=== PATIENT | male | born 1975 | race Hispanic/Latino ===

== ENCOUNTER 2019-01-30 08:40 | Emergency (ER) | payer BC ==
[2019-01-30] MEDS ORDERED: ONDANSETRON 4 MG/2 ML VIAL ONE (09:26)
[2019-01-30] MEDS ORDERED: MEPERIDINE HCL 25 MG/0.5 ML ONE (09:26)
[2019-01-30 09:32] LABS: Absolute Monocytes 0.8 K/uL (0.1-1.3); Basophils % 0.4 % (0-1.3); Eosinophils % 2.6 % (0-4.4); Hematocrit 40.5 % (39.6-49.0); MPV 8.8 fL (7.6-11.3); Monocytes % 7.4 % (3.3-12.3); RBC Red Blood Cell Count 4.59 M/uL (4.33-5.43)
[2019-01-30 09:44] LABS: ALT/SGPT 57 U/L (12-78); AST/SGOT 36 U/L (15-37); Alkaline Phosphatase 84 U/L (45-117); BUN Blood Urea Nitrogen 12 mg/dL (7-18); Bicarbonate 28 mmol/L (21-32); Bilirubin Direct < 0.1 mg/dL (0-0.2); Bilirubin Total 0.3 mg/dL (0.2-1.0); Glucose Level 105 mg/dL (74-106); Lipase 142 U/L (73-393); Potassium 4.1 mmol/L (3.5-5.1); Protein, Total 7.9 g/dL (6.4-8.2); Sodium Level 140 mmol/L (136-145)
--- NOTE | 2019-01-30 09:52 | RAD REPORT ---
EXAM DESCRIPTION: US - Abdomen Exam Limited - 01/30/2019 9:47 am COMPARISON: None. FINDINGS: No gallstones, sludge or other abnormalities within the gallbladder lumen. There is no wal l thickening or pericholecystic fluid. No common duct stone or biliary tree dilatation identified. Partially imaged liver shows evidence for fatty infiltration. IMPRESSION: Normal gallbladder and biliary tree ultrasound. Fatty infiltration is present in a partially imaged liver.
[2019-01-30 10:26] LABS: Urine Blood TRACE (NEG); Urine Glucose NEGATIVE (NEG); Urine Protein NEGATIVE (NEG); Urine Specific Gravity 1.025 (1.005-1.030)
--- NOTE | 2019-01-30 11:42 | RAD REPORT ---
EXAM DESCRIPTION: CT - Abdomen Pelvis W Contrast - 01/30/2019 11:09 am CLINICAL HISTORY: Back pain, abdominal pain COMPARISON: None. TECHNIQUE: Biphasic, helical CT imaging of the abdomen and pelvis was performed following 100 ml non -ionic IV contrast. No oral contrast administered. All CT scans are performed using dose optimization technique as appropriate and may include automated exposure control or mA/KV adjustment according to patient size. FINDINGS: No suspicious findings in the lung bases. Liver shows a very pronounced fatty infiltration pattern with no suspicious liver lesion. Spleen and pancreas show no suspicious findings. Gallbladder and biliary tree are also without suspicious findin g. Symmetric renal function is seen with no hydronephrosis or suspicious renal mass. No pyelonephritis o r acute parenchymal process. No bladder abnormalities. No adrenal abnormalities. No dilated bowel loops or bowel wall thickening. No free air, free fluid or inflammatory stranding. No mass or bulky lymphadenopathy. A small fat only umbilical hernia is present. No suspicious bony findings. IMPRESSION: Contrast enhanced CT abdomen and pelvis showing no acute finding. Diffuse fatty infiltration of a prominent sized liver.
--- NOTE | 2019-01-30 11:56 | EDPHYS ---
Physician Documentation [facility] Name: María Kramer Age: 43 yrs Sex: Male : 1975 Arrival Date: 01/30/2019 Time: 08:44 Bed 8 Private MD: ED Physician Fernando Guerra HPI: 01/30 09:04 This 43 yrs old Male presents to ER via Ambulatory with complaints of jr8 Abdominal pain/Back pain. 09:04 The patient presents with abdominal pain in the right upper quadrant. Onset: The jr8 symptoms/episode began/occurred acutely, today. The symptoms radiate to right back. Associated signs and symptoms: Pertinent positives: nausea. The symptoms are described as stabbing. Modifying factors: The symptoms are alleviated by nothing, the symptoms are aggravated by nothing. Severity of pain: At its worst the pain was moderate. The patient has not experienced similar symptoms in the past. The patient has not recently seen a physician. Historical: - Allergies: 09:00 No Known Allergies; iw - PMHx: 09:00 Hypothyroidism; iw - PSHx: 09:00 None; iw - Immunization history:: Adult Immunizations up to date. - Social history:: Smoking status: Patient uses tobacco products, smokes one pack cigarettes per day. - Ebola Screening: : Patient negative for fever greater than or equal to 101.5 degrees Fahrenheit, and additional compatible Ebola Virus Disease symptoms Patient denies exposure to infectious person Patient denies travel to an Ebola-affected area in the 21 days before illness onset No symptoms or risks identified at this time. ROS: 09:04 Eyes: Negative for injury, pain, redness, and discharge, ENT: Negative for injury, jr8 pain, and discharge, Neck: Negative for injury, pain, and swelling, Cardiovascular: Negative for chest pain, palpitations, and edema, Respiratory: Negative for shortness of breath, cough, wheezing, and pleuritic chest pain, Back: Negative for injury and pain, MS/Extremity: Negative for injury and deformity, Skin: Negative for injury, rash, and discoloration, Neuro: Negative for headache, weakness, numbness, tingling, and seizure. 09:04 Abdomen/GI: Positive for abdominal pain, nausea, Negative for vomiting, diarrhea, constipation, abdominal cramps, abdominal distension. Exam: 09:04 Eyes: Pupils equal round and reactive to light, extra-ocular motions intact. Lids and jr8 lashes normal. Conjunctiva and sclera are non-icteric and not injected. Cornea within normal limits. Periorbital areas with no swelling, redness, or edema. ENT: Nares patent. No nasal discharge, no septal abnormalities noted. Tympanic membranes are normal and external auditory canals are clear. Oropharynx with no redness, swelling, or masses, exudates, or evidence of obstruction, uvula midline. Mucous membranes moist. Neck: Trachea midline, no thyromegaly or masses palpated, and no cervical lymphadenopathy. Supple, full range of motion without nuchal rigidity, or vertebral point tenderness. No Meningismus. Cardiovascular: Regular rate and rhythm with a normal S1 and S2. No gallops, murmurs, or rubs. Normal PMI, no JVD. No pulse deficits. Respiratory: Lungs have equal breath sounds bilaterally, clear to auscultation and percussion. No rales, rhonchi or wheezes noted. No increased work of breathing, no retractions or nasal flaring. Back: No spinal tenderness. No costovertebral tenderness. Full range of motion. Skin: Warm, dry with normal turgor. Normal color with no rashes, no lesions, and no evidence of cellulitis. MS/ Extremity: Pulses equal, no cyanosis. Neurovascular intact. Full, normal range of motion. Neuro: Awake and alert, GCS 15, oriented to person, place, time, and situation. Cranial nerves II-XII grossly intact. Motor strength 5/5 in all extremities. Sensory grossly intact. Cerebellar exam normal. Normal gait. 09:04 Abdomen/GI: Inspection: obese Bowel sounds: active, all quadrants, Palpation: soft, in all quadrants, moderate abdominal tenderness, in the right upper quadrant, mass, is not appreciated, rebound tenderness, is not appreciated, voluntary guarding, is not appreciated, involuntary guarding, is not appreciated, no appreciated organomegaly, Indicators: McBurney's point is not tender, Zamora's sign is positive, Rovsing's sign is negative, Liver: tenderness, is not appreciated. Vital Signs: 09:00 BP 135 / 88; Pulse 76; Resp 18 S; Temp 97.8; Pulse Ox 98% on R/A; Weight 120.2 kg; iw Height 5 ft. 7 in. (170.18 cm); Pain 10/10; 10:08 BP 113 / 79; Pulse 66; Resp 16 S; Pulse Ox 99% on R/A; Pain 5/10; aa5 09:00 Body Mass Index 41.50 (120.20 kg, 170.18 cm) iw MDM: 08:57 Patient medically screened. jr8 11:53 Differential diagnosis: bowel obstruction, cholecystitis, Cholelithiasis, jr8 diverticulitis, gastritis, gastroesophageal reflux disease, Hepatitis, non-specific abd pain, pancreatitis, Peptic Ulcer Disease, Perf. Duodenal Ulcer, Perf. Gastric Ulcer, Ureterolithiasis, urinary tract infection, acalculous cholecystitis. Data reviewed: vital signs, nurses notes, lab test result(s), radiologic studies, CT scan, ultrasound. Data interpreted: Pulse oximetry: on room air is 99 %. Interpretation: normal. Counseling: I had a detailed discussion with the patient and/or guardian regarding: the historical points, exam findings, and any diagnostic results supporting the discharge/admit diagnosis, lab results, radiology results, the need for outpatient follow up, a engineering surveyor, to return to the emergency department if symptoms worsen or persist or if there are any questions or concerns that arise at home. Response to treatment: the patient's symptoms have markedly improved after treatment. 01/30 09:02 Order name: Basic Metabolic Panel; Complete Time: :01/30 09:02 Order name: CBC with Diff; Complete Time: :01/30 09:02 Order name: Creatinine for Radiology; Complete Time: :01/30 09:02 Order name: Hepatic Function; Complete Time: :46 01/30 09:02 Order name: Lipase; Complete Time: :46 01/30 09:34 Order name: Urine Dipstick--Ancillary (enter results); Complete Time: 10:29 eb 01/30 09:02 Order name: IV Saline Lock; Complete Time: 09:01/30 09:02 Order name: Labs collected and sent; Complete Time: 09:01/30 09:02 Order name: US Abdomen Limited; Complete Time: 10:15 01/30 09:25 Order name: Urine Dipstick-Ancillary (obtain specimen); Complete Time: 09:25 aa5 01/30 10:16 Order name: CT Abd/Pelvis - W/Contrast; Complete Time: 11:52 jr8 Administered Medications: 09:15 Drug: Demerol 25 mg Route: IVP; Site: left antecubital; 5 09:20 Follow up: Response: No adverse reaction 5 09:15 Drug: Zofran 4 mg Route: IVP; Site: left antecubital; aa5 09:20 Follow up: Response: No adverse reaction [facility] Disposition: 01/30/19 11:54 Discharged to Home. Impression: Right upper quadrant abdominal tenderness. - Condition is Stable. - Discharge Instructions: Abdominal Pain, Adult. - Prescriptions for Zofran 4 mg Oral Tablet - take 1 tablet by ORAL route every 12 hours As needed; 20 tablet. Tramadol 50 mg Oral Tablet - take 1 tablet by ORAL route every 8 hours as needed; 12 tablet. - Medication Reconciliation Form, Thank You Letter, Antibiotic Education, Prescription Opioid Use, Work release form, Family Work Release form. - Follow up: Renato Bauman MD; When: 5 - 6 days; Reason: Recheck today's complaints, Continuance of care, Re-evaluation by your physician. - Problem is new. - Symptoms have improved. Addendum: 02/01/2019 08:01 Co-signature as Attending Physician, Fernando Guerra MD I agree with the assessment and k dr plan of care. Signatures: Dispatcher [employer] EDMN Fernando Guerra MD MD [facility] Kamini Chapman RN RN Mariana Sullivan RN RN aa5 Iglesia Barron PA PA jr8 Néstor Simental RN RN hj Corrections: (The following items were deleted from the chart) 01/30 12:40 11:54 01/30/2019 11:54 Discharged to Home. Impression: Right upper quadrant abdominal hj tenderness. Condition is Stable. Forms are Medication Reconciliation Form, Thank You Letter, Antibiotic Education, Prescription Opioid Use. Follow up: Renato Bauman; When: 5 - 6 days; Reason: Recheck today's complaints, Continuance of care, Re-evaluation by your physician. Problem is new. Symptoms have improved. jr8
--- NOTE | 2019-01-30 11:56 | ER ---
Nurse's Notes [facility] Name: María Kramer Age: 43 yrs Sex: Male : 1975 Arrival Date: 01/30/2019 Time: 08:44 Bed 8 Private MD: Diagnosis: Right upper quadrant abdominal tenderness Presentation: 01/30 08:57 Presenting complaint: Patient states: right mid back pain radiating to RUQ/right breast iw area, tender on palpation, denies injury, denies n/v, pain 10/10, states pain makes him SOB. Transition of care: patient was not received from another setting of care. Onset of symptoms was January 28, 2019. Risk Assessment: Do you want to hurt yourself or someone else? Patient reports no desire to harm self or others. Initial Sepsis Screen: Does the patient meet any 2 criteria? No. Patient's initial sepsis screen is negative. Does the patient have a suspected source of infection? No. Patient's initial sepsis screen is negative. Care prior to arrival: None. 08:57 Method Of Arrival: Ambulatory 08:57 Acuity: KAYLAH 3 iw Historical: - Allergies: 09:00 No Known Allergies; iw - PMHx: 09:00 Hypothyroidism; iw - PSHx: 09:00 None; iw - Immunization history:: Adult Immunizations up to date. - Social history:: Smoking status: Patient uses tobacco products, smokes one pack cigarettes per day. - Ebola Screening: : Patient negative for fever greater than or equal to 101.5 degrees Fahrenheit, and additional compatible Ebola Virus Disease symptoms Patient denies exposure to infectious person Patient denies travel to an Ebola-affected area in the 21 days before illness onset No symptoms or risks identified at this time. Screenin:05 Abuse screen: Denies threats or abuse. Nutritional screening: No deficits noted. aa5 Tuberculosis screening: No symptoms or risk factors identified. Fall Risk None identified. Assessment: 09:05 General: Appears comfortable, Behavior is calm, cooperative. Pain: Complains of pain in aa5 right upper quadrant Pain radiates to right mid back Pain currently is 10 out of 10 on a pain scale. Quality of pain is described as sharp, shooting, Pain began last night Is continuous. Neuro: Level of Consciousness is awake, alert, obeys commands, Oriented to person, place, time, situation. Cardiovascular: Heart tones S1 S2 present Rhythm is regular. Respiratory: Airway is patent Respiratory effort is even, unlabored, Respiratory pattern is regular, symmetrical. GI: Abdomen is round Bowel sounds present X 4 quads. Abdomen is tender to palpation in right upper quadrant Patient currently denies diarrhea, nausea, vomiting. : No signs and/or symptoms were reported regarding the genitourinary system. EENT: No signs and/or symptoms were reported regarding the EENT system. Derm: Skin is pink, warm \T\ dry. Musculoskeletal: Range of motion: intact in all extremities. 10:00 Reassessment: Pt resting in bed with eyes closed, respirations even and unlabored, skin aa5 is normal/warm/dry. Pt easy to awaken to verbal stimuli. States feeling better, rates pain 5/10 on a pain scale. . 10:45 Reassessment: Patient is alert, oriented x 3, equal unlabored respirations, skin aa5 warm/dry/pink. Pt sitting up in bed. Awaiting CT scan . 10:45 Pain: Pain currently is 5 out of 10 on a pain scale. aa5 Vital Signs: 09:00 BP 135 / 88; Pulse 76; Resp 18 S; Temp 97.8; Pulse Ox 98% on R/A; Weight 120.2 kg; iw Height 5 ft. 7 in. (170.18 cm); Pain 10/10; 10:08 BP 113 / 79; Pulse 66; Resp 16 S; Pulse Ox 99% on R/A; Pain 5/10; aa5 09:00 Body Mass Index 41.50 (120.20 kg, 170.18 cm) ED Course: 08:44 Patient arrived in ED. rg4 08:57 Mariana Sullivan, RN is Primary Nurse. aa5 08:57 Mariana Sullivan, RN is Primary Nurse. aa5 08:57 Iglesia aBrron PA is PHCP. jr8 08:57 Fernando Guerra MD is Attending Physician. jr8 08:59 Triage completed. iw 09:00 Arm band placed on. iw 09:02 Missed attempt(s): 22 gauge in right antecubital area. jb1 09:05 Patient has correct armband on for positive identification. Placed in gown. Bed in low aa5 position. Call light in reach. Side rails up X2. 09:05 Initial lab(s) drawn, by me, sent to lab. Inserted saline lock: 20 gauge in left aa5 antecubital area, using aseptic technique. Blood collected. 09:47 Ultrasound completed. Patient tolerated well. sg3 09:47 US Abdomen Limited In Process Unspecified. EDMS 10:03 No provider procedures requiring assistance completed. aa5 11:08 CT completed. Patient tolerated procedure well. Patient moved back from CT. az 11:09 CT Abd/Pelvis - W/Contrast In Process Unspecified. EDMS 11:54 Renato Bauman MD is Referral Physician. jr8 12:40 IV discontinued, intact, bleeding controlled, No redness/swelling at site. Pressure hj dressing applied. Administered Medications: 09:15 Drug: Demerol 25 mg Route: IVP; Site: left antecubital; aa5 09:20 Follow up: Response: No adverse reaction aa5 09:15 Drug: Zofran 4 mg Route: IVP; Site: left antecubital; aa5 09:20 Follow up: Response: No adverse reaction aa5 Outcome: 11:54 Discharge ordered by . jr8 12:39 Discharged to home ambulatory, with family. hj 12:39 Condition: stable 12:39 Discharge instructions given to patient, family, Instructed on discharge instructions, follow up and referral plans. medication usage, Demonstrated understanding of instructions, follow-up care, medications, Prescriptions given X 2. 12:40 Patient left the ED. Signatures: Dispatcher [employer] EDGA Allen Gandhi jb1 Greg Longo LVN LVN em Williams, Irene, RN RN iw Calderon, Audri, RN RN aa5 Iglesia Barron PA PA jr8 Néstor Simental RN RN hj Garcia, Rubi rg4 Godinez, Sarah sg3 June Dow mt Corrections: (The following items were deleted from the chart) 08:57 08:53 Greg Longo LVN is Primary Nurse. jarrett aguayo 08:57 08:57 Primary Nurse role handed off by Greg Longo LVN aa5 aa5
== END 2019-01-30 12:40 | disposition home or self-care (01) ==
LOC: ER 08:40
DX: R10.811 Right upper quadrant abdominal tenderness (principal); F17.210 Nicotine dependence, cigarettes, uncomplicated
CPT/HCPCS: 36415; 74177; 76705; 80048; 80076; 81003; 83690; 85025; 96374; 96375; 99284; J2175; J2405; Q9967

== ENCOUNTER 2022-10-02 21:25 | Emergency (ER) | payer BC ==
--- OUTSIDE RECORDS SUMMARY | 2022-10-02 21:27 | XMS REPORT | Continuity of Care Document ---
:1975 Author Organization [facility] t Address [address] [place] [address] Care Team Providers Name Role Phone EDNA ROMERO Primary Care Physician Unavailable EDNA ROMERO Attending Clinician Unavailable LAKESHA MONTGOMERY Attending Clinician Unavailable Lakesha Montgomery MD Attending Clinician GLADYS MARSHALL Attending Clinician Unavailable King MONA MD, James C Attending Clinician TIMI BURTON III Attending Clinician Unavailable Payers Payer Name Policy Type Policy Number Effective Date Expiration Date S deidra [facility] [id number] 2022 00:00:00 COMMERCIAL [id number] 2021 NON-CONTRACT 00:00:00 GENERIC Problems Condition Condition Condition Status Onset Resolution Last Treating Co mments Source Name Details Category Date Date Treatment Clinician Date History of History of Disease Active 2018-09 U denis Graves' Graves' 0-14 ity of disease disease 00:00: [address] Branch Prediabete Prediabete Disease Active U denis s s 6-26 ity of 00:00: [place] [id number] Medical Branch Hyperlipid Hyperlipid Disease Active U denis emia, emia, 1-10 ity of unspecifie [place] Medical hyperlipid hyperlipid Br anch emia type emia type Gastroesop Gastroesop Disease Active 2015-09 U denis hageal hageal 0-07 ity of reflux reflux 00:00: [place] disease disease 00 Medical without without Branch esophagiti esophagiti s s Hypothyroi Hypothyroi Disease Active 2015-09 U nivers dism, dism, 0-07 ity of [place]specifie [place] type 00 [facility] Allergies, Adverse Reactions, Alerts Allergy Allergy Status Severity Reaction(s) Onset Inactive Treating Comm ents Source Name Type Date Date Clinician Iodine Propensi Active Anaphylaxis Uni vers ty to 02-21 ity of adverse 00:00: [place] reaction 00 Medical s Branch IODINE DRUG Active Anaphylaxis Unive rs INGREDI 02-21 ity of 00:00: [place] 00 [facility] Social History Social Habit Start Date Stop Date Quantity Comments Source History of tobacco Cigarette Smoker University use [facility] Alcohol intake 2019-06-20 2019-06-20 0 /d University of 00:00:00 00:00:00 [facility] Cigarettes smoked 2018-03-15 2018-03-15 [facility] ity of current (pack per 00:00:00 00:00:00 [facility] ) - Reported Branch Cigarette 2018-03-15 2018-03-15 University of pack-years 00:00:00 00:00:00 [facility] Tobacco use and 2018-03-15 2018-03-15 Smokeless Universit y of exposure 00:00:00 00:00:00 tobacco non-user [facility] Sex Ass[birth year] At [birth year] Universit y of 00:00:00 00:00:00 [facility] Smoking Status Start Date Stop Date Source Smokes tobacco daily 2018-03-15 00:00:00 Univers ity of [facility] Medications Ordered Filled Start Stop Current Ordering Indication Dosage Frequency Signature Comments Components Source Medication Medication Date Date Medication? Clinician (SIG) Name Name traMADoL 2020-09 Yes Take by Univer s 100 mg Tab 2-20 mouth. ity of 10:47: [address] traMADoL 2020-09 Yes Take by Univer s 100 mg Tab 2-20 mouth. ity of 10:47: [address] fluticasone 2018-09 Yes [id number] 1{spray Use 1 Univers propionate 0-14 } [place] in ity o f 50 00:00: each [place] mcg/actuati 00 nostril 2 Med ical on nasal (two) Branch spray times daily. fluticasone 2018-09 Yes [id number] 1{spray Use 1 Univers propionate 0-14 } [place] in ity o f 50 00:00: each [place] mcg/actuati 00 nostril 2 Med ical on nasal (two) Branch spray times daily. levothyroxi 2017-09 Yes [id number] 25ug Take 1 Univers ne 25 mcg 0-26 tablet by ity o f tablet 00:00: mouth [place] 00 every Medical morning. Branch levothyroxi 2017-09 Yes [id number] 200ug Take 1 Univers ne 0-26 tablet by ity of (SYNTHROID) 00:00: mouth [place] 200 mcg 00 every Medical tablet morning. Branch omeprazole 2017-09 Yes [id number] 20mg Take 1 Univers 20 mg 0-26 capsule by ity of capsule 00:00: mouth [place] 00 daily. Medical Branch levothyroxi 2017-09 Yes [id number] 25ug Take 1 Univers ne 25 mcg 0-26 tablet by ity o f tablet 00:00: mouth [place] 00 every Medical morning. Branch levothyroxi 2017-09 Yes [id number] 200ug Take 1 Univers ne 0-26 tablet by ity of (SYNTHROID) 00:00: mouth [place] 200 mcg 00 every Medical tablet morning. Branch omeprazole 2017-09 Yes [id number] 20mg Take 1 Univers 20 mg 0-26 capsule by ity of capsule 00:00: mouth [place] 00 daily. Medical Branch albuterol 2016-09 Yes 2.5mg Inhale 3 Uni vers 2.5 mg /3 2-09 mL every 4 ity of mL (0.083 00:00: (four) [place] %) 00 hours as Medical nebulizer needed for Bran ch solution Wheezing or Shortness of Breath. albuterol 2016-09 Yes 2.5mg Inhale 3 Uni vers 2.5 mg /3 2-09 mL every 4 ity of mL (0.083 00:00: (four) [place] %) 00 hours as Medical nebulizer needed for Bran ch solution Wheezing or Shortness of Breath. Immunizations Ordered Filled Immunization Date Status Comments [facility] e Immunization Name Name SARS-COV-2 COVID-19 2020-12-03 Completed Unive rsity of MODERNA VACCINE 00:00:00 [place] Med ical Branch SARS-COV-2 COVID-19 2020-12-03 Completed Unive rsity of MODERNA VACCINE 00:00:00 [facility] SARS-COV-2 COVID-19 2020-11-05 Completed Unive rsity of MODERNA VACCINE 00:00:00 [facility] SARS-COV-2 COVID-19 2020-11-05 Completed Unive rsity of MODERNA VACCINE 00:00:00 [facility] Branch Influenza Virus 2019-06-20 Completed Universit y of Vaccine Quad .5 mL 00:00:00 [facility] IM 6+ MO Branch Influenza Virus 2019-06-20 Completed Universit y of Vaccine Quad .5 mL 00:00:00 [facility] IM 6+ MO Branch Influenza Virus 2016-09-16 Completed Universit y of Vaccine Quad ID 00:00:00 [facility] 18-64 YRS Branch Influenza Virus 2016-09-16 Completed Universit y of Vaccine Quad ID 00:00:00 [facility] 18-64 YRS Branch Vital Signs Vital Name Observation Time Observation Value Comments Source Systolic blood 2019-06-20 13:54:00 102 mm[Hg] Univer sity of pressure [facility] Diastolic blood 2019-06-20 13:54:00 61 mm[Hg] Unive rsity of pressure [facility] Heart rate 2019-06-20 13:54:00 81 /min [facility] Body temperature 2019-06-20 13:54:00 36.5 [facility] Respiratory rate 2019-06-20 13:54:00 18 /min [facility] Body height 2019-06-20 13:54:00 171.5 cm [facility] Body weight 2019-06-20 13:54:00 119.75 kg [facility] BMI 2019-06-20 13:54:00 40.74 kg/m2 [facility] Oxygen saturation in 2019-06-20 13:54:00 98 /min [facility] Arterial blood by [facility] Pulse oximetry Branch Procedures Procedure Date / Time Performed Performing Clinician Sourc e FLU VACC ([id number]), 2019-06-20 14:18:31 Timi Burton [facility] [place] 6+ MONTHS, IM, QUAD Medical Bran ch Encounters Start End Encounter Admission Attending Care Care Encounter Source Date/Time Date/Time Type Type Clinicians Facility Department ID 2022-09-30 2022-09-30 Outpatient R [facility] [id number] Univers 12:30:00 12:30:00 EDNA madai [facility] 2022-03-18 2022-03-18 Outpatient R [facility] [id number] Univers 08:30:00 [facility]30[facility] 2022-03-17 2022-03-17 [facility] [id number] Univers 00:00:00 00:00:00 [facility] [id number] it y of [facility] [id number] [place] as JOHN?BLEA [phone] Ma donovan [address] [place] MEDICAL OFF[facility] 2020-12-03 2020-12-03 Outpatient R [facility] [id number] Univers 08:10:00 08:10:00 [facility] 2020-11-05 2020-11-05 [facility] [id number] Univers 10:30:00 10:30:00 [facility] 2020-11-04 2020-11-04 [facility] [id number] Univers 14:55:00 14:55:00 [facility] 2019-06-20 2019-06-20 Office Timi Burton [facility] [id number] Univers 08:40:00 09:38:13 Visit C LIKELY [id number] i ty of [place] [id number] [place] [id number] Ma donovan [address] Branch BUILDING 2019-06-20 2019-06-20 Outpatient R [facility] [id number] Univers 08:40:00 09:38:13 TIMI [facility] Results This patient has no known results.
[2022-10-02 22:15] LABS: Absolute Lymphocytes (CBC) 3.7 K/uL (0.7-4.9); Hematocrit 39.7 % (39.6-49.0); Lymphocytes % 36.7 % (15.3-44.8); MCV 88.7 fL (80-100); MPV 8.1 fL (7.6-11.3); RBC Red Blood Cell Count 4.48 M/uL (4.33-5.43)
[2022-10-02 22:26] LABS: C-Reactive Protein 7.85 mg/L (<3.00); Potassium 3.4 mmol/L (3.5-5.1)
--- NOTE | 2022-10-02 22:38 | RAD REPORT ---
EXAM DESCRIPTION: RAD - Foot Left 3 View - 10/02/2022 10:28 pm CLINICAL HISTORY: Left Foot pain FINDINGS: No fracture or dislocation is seen. Soft tissue swelling is present. No bone or joint abnormality noted
--- NOTE | 2022-10-02 23:18 | EDPHYS ---
Physician Documentation [facility] Name: María Kramer Age: 46 yrs Sex: Male : 1975 Arrival Date: 10/02/2022 Time: 21:30 Bed 12 Private MD: ED Physician Liu Bingham HPI: 10/02 21:56 This 46 yrs old Male presents to ER via Ambulatory with complaints of Feet bs3 Swelling. 21:56 46-year-old male history of hypothyroidism, obesity, current smoker presents with bs3 several weeks of left fourth and fifth toe redness and ulceration the patient notes that his feet were in a moist shoe when he was working and then developed some ulcerations on his feet he continued to work and continues to work since this happened and his swelling and redness has not gotten any better they tried putting bacitracin and hydrogen peroxide on his feet without relief he denies any fevers but felt like he had chills earlier today he notes a chronic cough on review of systems no chest pain shortness of breath nausea vomiting or anything else bothering him. Denies hx of dm. Historical: - Allergies: 21:40 No Known Allergies; vc1 - Home Meds: 21:40 Synthroid 200 mcg Oral tab 1 tab once daily [Active]; vc1 - PMHx: 21:40 Hypothyroidism; vc1 - PSHx: 21:40 None; vc1 - Immunization history:: Client reports receiving the 2nd dose of the Covid vaccine. - Social history:: Smoking status: Patient reports the use of cigarette tobacco products, 7-8. ROS: 21:56 Constitutional: Negative for fever, chills Eyes: Negative for injury, pain, redness, bs3 and discharge. 21:56 All other systems are negative. 21:56 Unable to obtain ROS due to 21:56 Unable to obtain ROS due to cannot unclick unable to obtrain. Exam: 21:56 Constitutional: This is a well developed, well nourished patient who is awake, alert, bs3 and in no acute distress. Head/Face: Normocephalic, atraumatic. ENT: mmm, no posterior phyarngeal erythema Cardiovascular: Regular rate and rhythm with a normal S1 and S2. symmetric pulses in upper extremities Respiratory: Lungs have equal breath sounds bilaterally, clear to auscultation, no respiratory distress Abdomen/GI: Soft, non-tender, no rebound or guarding MS/ Extremity: left fourth/fifth digit with skin breakdown, there is some erythema, no purulent drainage Neuro: Awake and alert, GCS 15, oriented to person, place, time, and situation. Cranial nerves II-XII grossly intact. Motor strength 5/5 in all extremities. Sensory grossly intact. Psych: Awake, alert, with orientation to person, place and time. Behavior, mood, and affect are within normal limits. Vital Signs: 21:37 Weight 111.13 kg; Height 5 ft. 7 in. (170.18 cm); Pain 10/10; vc1 21:43 BP 120 / 47; Pulse 76; Resp 18; Temp 98.1; Pulse Ox 100% ; vc1 22:59 BP 119 / 65; Pulse 62; Resp 16; Pulse Ox 100% on R/A; kd3 21:37 Body Mass Index 38.37 (111.13 kg, 170.18 cm) vc1 MDM: 21:47 Patient medically screened. bs3 21:56 Differential diagnosis: cellulitis, osteomyelitis, pressure ulcer, skin breakdown 2/2 bs3 hydrogen peroxide. 21:56 Care significantly affected by the following Social Determinants of Health: Poor access bs3 to healthcare and/or lack of insurance. ED course: will eval for osteo, possible infection, will cover with antibiotics, will rec betadine soaks, keep dry and without socks for 1 week and f/u with surgery for possible debridement, pt counceled at length that he needs to stop smoking for healing to occur. Very strict return prec given. . 23:16 Data reviewed: vital signs, nurses notes, radiologic studies, plain films. bs3 Consideration of Admission/Observation. Independent interpretation of the following test(s) in the Emergency Department X-Ray: My interpretation is no bony erosion. ED course: labs notable for elevated crp, otherwise wnl, pt advised to f/u with surgery for wound care, will cover with antibiotics, advised betadine soaks. 10/02 21:55 Order name: CBC with Diff; Complete Time: 23:15 bs3 10/02 21:55 Order name: BMP; Complete Time: 23:15 bs3 10/02 21:55 Order name: CRP; Complete Time: 23:15 bs3 10/02 22:30 Order name: Foot Left 3 View; Complete Time: 23:15 EDMS Administered Medications: 22:15 Drug: Betadine Solution 10 % 3 application Route: Topical; Site: wound; kd3 Disposition Summary: 10/02/22 23:18 Discharge Ordered Location: Home bs3 Problem: new bs3 Symptoms: are unchanged bs3 Condition: Fair bs3 Diagnosis - Foot Laceration/ Open wound of foot bs3 Followup: bs3 - With: Raul Alvarez MD - When: 5 - 6 days - Reason: Recheck today's complaints Discharge Instructions: - Discharge Summary Sheet bs3 - Wound Care, Adult bs3 Forms: - Work release form bs3 - Medication Reconciliation Form bs3 - Thank You Letter bs3 - Antibiotic Education bs3 - Prescription Opioid Use bs3 Prescriptions: - BETADINE 10% - apply 10 drop by TOPICAL route [address] 10 drops of betadine in bs3 warm water and soak foot in solution for 20min 2x daily. Then dry foot and keep clean and dry; 1 bottle; Refills: 0, Product Selection Permitted - Clindamycin HCl 300 mg Oral Capsule - take 1 capsule by ORAL route every 6 hours for 10 days; 40 capsule; Refills: 0, bs3 Product Selection Permitted Signatures: Dispatcher [employer] Michelle Gomez RN RN kd3 Carli Alexander RN RN vc1 Liu Bingham MD MD bs3 Corrections: (The following items were deleted from the chart) 22:30 21:56 Foot Right 3 View+RAD.RAD.BRZ ordered. EDMS EDMS
--- NOTE | 2022-10-02 23:18 | ER ---
Nurse's Notes [facility] Name: María Kramer Age: 46 yrs Sex: Male : 1975 Arrival Date: 10/02/2022 Time: 21:30 Bed 12 Private MD: Diagnosis: Foot Laceration/ Open wound of foot Presentation: 10/02 21:37 Chief complaint: Patient states: "He worked all week in [place] and came home with a vc1 sore. I cleaned it with peroxide and put Neosporin but now his foot is swollen and hurts really bad.". Coronavirus screen: Vaccine status: Patient reports receiving the 2nd dose of the covid vaccine. plus booster Moderna Client denies travel out of the [place] in the last 14 days. Ebola Screen: Patient negative for fever greater than or equal to 101.5 degrees Fahrenheit, and additional compatible Ebola Virus Disease symptoms Patient denies exposure to infectious person. Patient denies travel to an Ebola-affected area in the 21 days before illness onset. No symptoms or risks identified at this time. Risk Assessment: Do you want to hurt yourself or someone else? Patient reports no desire to harm self or others. Onset of symptoms was September 18, 2022. 21:37 Method Of Arrival: Ambulatory vc1 21:37 Acuity: KAYLAH 3 vc1 21:55 Initial Sepsis Screen: Does the patient meet any 2 criteria? No. Patient's initial kd3 sepsis screen is negative. Does the patient have a suspected source of infection? Yes: Skin breakdown/wound. Triage Assessment: 21:41 General: Appears in no apparent distress. uncomfortable, Behavior is calm, cooperative, vc1 appropriate for age. Pain: Complains of pain in plantar aspect of left first toe, plantar aspect of left second toe and ball of left foot Pain does not radiate. Pain currently is 10 out of 10 on a pain scale. Quality of pain is described as burning, stabbing, stinging, Pain began gradually, 2 weeks ago Alleviated by rest, Aggravated by increased activity, repositioning, weight bearing, Noted to be grimacing, guarding, resistant to movement. EENT: No deficits noted. No signs and/or symptoms were reported regarding the EENT system. Neuro: No deficits noted. Cardiovascular: No deficits noted. Respiratory: Airway is patent Respiratory effort is even, unlabored, Respiratory pattern is regular, symmetrical. GI: No deficits noted. : No deficits noted. Derm: Wound noted left foot. Musculoskeletal: Swelling present in left foot. Historical: - Allergies: 21:40 No Known Allergies; vc1 - Home Meds: 21:40 Synthroid 200 mcg Oral tab 1 tab once daily [Active]; vc1 - PMHx: 21:40 Hypothyroidism; vc1 - PSHx: 21:40 None; vc1 - Immunization history:: Client reports receiving the 2nd dose of the Covid vaccine. - Social history:: Smoking status: Patient reports the use of cigarette tobacco products, 7-8. Screenin:55 [facility] ED Fall Risk Assessment (Adult) History of falling in the last 3 months, kd3 including since admission No falls in past 3 months (0 pts) Confusion or Disorientation No (0 pts) Intoxicated or Sedated No (0 pts) Impaired Gait No (0 pts) Mobility Assist Device Used No (0 pt) Altered Elimination No (0 pt) Score/Fall Risk Level 0 - 2 = Low Risk Oriented to surroundings. Abuse screen: Denies threats or abuse. Denies injuries from another. Nutritional screening: No deficits noted. Tuberculosis screening: No symptoms or risk factors identified. Assessment: 21:53 General: Appears uncomfortable, Behavior is calm, cooperative. Pain: Complains of pain kd3 in left foot and ball of left foot and plantar aspect of left second toe and plantar aspect of left first toe. Neuro: Level of Consciousness is awake, alert, obeys commands, Oriented to person, place, time, situation. Respiratory: Airway is patent Trachea midline Respiratory effort is even, unlabored. 22:59 Reassessment: No changes from previously documented assessment. Patient and/or family kd3 updated on plan of care and expected duration. Pain level reassessed. Patient is alert, oriented x 3, equal unlabored respirations, skin warm/dry/pink. Vital Signs: 21:37 Weight 111.13 kg; Height 5 ft. 7 in. (170.18 cm); Pain 10/10; vc1 21:43 BP 120 / 47; Pulse 76; Resp 18; Temp 98.1; Pulse Ox 100% ; vc1 22:59 BP 119 / 65; Pulse 62; Resp 16; Pulse Ox 100% on R/A; kd3 21:37 Body Mass Index 38.37 (111.13 kg, 170.18 cm) vc1 ED Course: 21:30 Patient arrived in ED. ja2 21:40 Triage completed. vc1 21:43 Arm band placed on right wrist. vc1 21:47 Liu Bingham MD is Attending Physician. bs3 21:53 Michelle Lindsey, RN is Primary Nurse. kd3 21:56 Patient has correct armband on for positive identification. kd3 22:08 CBC with Diff Sent. kd3 22:08 BMP Sent. kd3 22:08 CRP Sent. kd3 22:30 Foot Left 3 View In Process Unspecified. EDMS 23:18 Raul Alvarez MD is Referral Physician. bs3 23:34 No provider procedures requiring assistance completed. IV discontinued, intact, kd3 bleeding controlled, No redness/swelling at site. Pressure dressing applied. Administered Medications: 22:15 Drug: Betadine Solution 10 % 3 application Route: Topical; Site: wound; kd3 Medication: 21:56 VIS not applicable for this client. kd3 Outcome: 23:18 Discharge ordered by . bs3 23:35 Discharged to home ambulatory. kd3 23:35 Condition: stable 23:35 Discharge instructions given to patient, family, Instructed on discharge instructions, follow up and referral plans. medication usage, Demonstrated understanding of instructions, follow-up care, medications, Prescriptions given X 2. 23:35 Patient left the ED. kd3 Signatures: Dispatcher [employer] EDMS Horace Carole ja2 Michelle Lindsey RN RN kd3 Carli Alexander RN RN vc1 Liu Bingham MD MD bs3
[2022-10-03 01:38] VITALS: TEMP 98.1; O2SAT 100
[2022-10-03 01:39] VITALS: BP 119/65
== END 2022-10-02 23:35 | disposition home or self-care (01) ==
LOC: ER 21:25
DX: S91.312A Laceration without foreign body, left foot, initial encounter (principal); E03.9 Hypothyroidism, unspecified; F17.210 Nicotine dependence, cigarettes, uncomplicated
CPT/HCPCS: 36415; 80048; 85025; 86140; 99284

== ENCOUNTER 2022-11-02 10:33 | Observation (INO) | payer BC ==
--- OUTSIDE RECORDS SUMMARY | 2022-11-02 10:36 | XMS REPORT | Continuity of Care Document ---
:1975 Author Organization [facility] t Address [address] [place] [address] Care Team Providers Name Role Phone EDNA ROMERO Primary Care Physician Unavailable EDNA ROMERO Attending Clinician Unavailable LAKESHA MONTGOMERY Attending Clinician Unavailable Lakesha Montgomery MD Attending Clinician GLADYS MARSHALL Attending Clinician Unavailable TIMI BURTON III Attending Clinician Unavailable King MONA MD, James C Attending Clinician Payers Payer Name Policy Type Policy Number Effective Date Expiration Date [facility] [id number] 2021 00:00:00 [facility] [id number] 2022 00:00:00 COMMERCIAL [id number] 2021 NON-CONTRACT 00:00:00 GENERIC Problems Condition Condition Condition Status Onset Resolution Last Treating Co mments Source Name Details Category Date Date Treatment Clinician Date History of History of Disease Active 2018-09 U karsteners Graves' Graves' 0-14 ity of disease disease 00:00: [address] Branch Prediabete Prediabete Disease Active U denis s s 6-26 ity of 00:00: [place] [id number] Medical Branch Hyperlipid Hyperlipid Disease Active U denis emia, emia, 1-10 ity of [place]specif[place] Medical hyperlipid hyperlipid Br anch emia type emia type Gastroesop Gastroesop Disease Active 2016-1 U nivers hageal hageal 0-07 ity of reflux reflux 00:00: [place] disease disease 00 Medical without without Branch esophagiti esophagiti s s Hypothyroi Hypothyroi Disease Active 2015-09 U nivers dism, dism, 0-07 ity [place]specifie [place] d type 00 Medical [place] Allergies, Adverse Reactions, Alerts Allergy Allergy Status Severity Reaction(s) Onset Inactive Treating Comm ents Source Name Type Date Date Clinician Iodine Propensi Active Anaphylaxis Uni vers ty to 02-21 ity of adverse 00:00: [place] reaction 00 Medical s Branch IODINE DRUG Active Anaphylaxis Unive rs INGREDI 02-21 ity of 00:00: [place] 00 Medical [place] Social History Social Habit Start Date Stop Date Quantity Comments Source History of tobacco Cigarette Smoker University of use [facility] Alcohol intake 2019-06-20 2019-06-20 0 /d University 00:00:00 00:00:00 [facility] Cigarettes smoked 2018-03-15 2018-03-15 Univers ity of current (pack per 00:00:00 00:00:00 [facility] ) - Reported Branch Cigarette 2018-03-15 2018-03-15 University of pack-years 00:00:00 00:00:00 [facility] Tobacco use and 2018-03-15 2018-03-15 Smokeless Universit y of exposure 00:00:00 00:00:00 tobacco non-user [facility] [place] [facility] Sex Ass[birth year] At [birth year] Universit y of 00:00:00 00:00:00 [facility] Smoking Status Start Date Stop Date Source Smokes tobacco daily 2018-03-15 00:00:00 Univers ity of [facility] Medications Ordered Filled Start Stop Current Ordering Indication Dosage Frequency Signature Comments Components Source Medication Medication Date Date Medication? Clinician (SIG) Name Name traMADoL 2020-09 Yes Take by Univer s 100 mg Tab 2-20 mouth. ity of 10:47: [address] traMADoL 2020-09 Yes Take by Univer s 100 mg Tab 2-20 mouth. ity of 10:47: [address] fluticasone 2018-09 Yes [id number] 1{spray Use 1 Univers propionate 0-14 } [place] in ity o f 50 00:00: each [place] mcg/actuati 00 nostril 2 Med ical on nasal (two) Branch spray times daily. fluticasone 2018-09 Yes [id number] 1{spray Use 1 Univers propionate 0-14 } [place] in ity o f 50 00:00: each [place] mcg/actuati 00 nostril 2 Med ical on nasal (two) Branch spray times daily. levothyroxi 2017-09 Yes [id number] 25ug Take 1 Univers ne 25 mcg 0-26 tablet by ity o f tablet 00:00: mouth [place] 00 every Medical morning. Branch levothyroxi 2017-09 Yes [id number] 200ug Take 1 Univers ne 0-26 tablet by ity of (SYNTHROID) 00:00: mouth [place] 200 mcg 00 every Medical tablet morning. Branch omeprazole 2017-09 Yes [id number] 20mg Take 1 Univers 20 mg 0-26 capsule by ity of capsule 00:00: mouth [place] 00 daily. Medical Branch levothyroxi 2017-09 Yes [id number] 25ug Take 1 Univers ne 25 mcg 0-26 tablet by ity o f tablet 00:00: mouth [place] 00 every Medical morning. Branch levothyroxi 2017-09 Yes [id number] 200ug Take 1 Univers ne 0-26 tablet by ity of (SYNTHROID) 00:00: mouth [place] 200 mcg 00 every Medical tablet morning. Branch omeprazole 2017-09 Yes [id number] 20mg Take 1 Univers 20 mg 0-26 [...] Immunizations Ordered Filled Immunization Date Status Comments [facility] e Immunization Name Name SARS-COV-2 COVID-19 2020-12-03 Completed Unive rsity of MODERNA VACCINE 00:00:00 [place] Med ical Branch SARS-COV-2 COVID-19 2020-12-03 Completed Unive rsity of MODERNA VACCINE 00:00:00 [facility] SARS-COV-2 COVID-19 2020-11-05 Completed Unive rsity of MODERNA VACCINE 00:00:00 [facility] SARS-COV-2 COVID-19 2020-11-05 Completed Unive rsity of MODERNA VACCINE 00:00:00 [facility] Influenza Virus 2019-06-20 Completed Universit y of Vaccine Quad .5 mL 00:00:00 [facility] IM 6+ MO Branch Influenza Virus 2019-06-20 Completed Universit y of Vaccine [place] .5 mL 00:00:00 [facility] IM 6+ MO Branch Influenza Virus 2016-09-16 Completed Universit y of Vaccine Quad ID 00:00:00 [facility] 18-64 YRS Branch Influenza Virus 2016-09-16 Completed Universit y of Vaccine Quad ID 00:00:00 [facility] 18-64 YRS [place] Vital Signs Vital Name Observation Time Observation Value Comments Source Systolic blood 2019-06-20 13:54:00 102 mm[Hg] Univer sity of pressure [facility] Diastolic blood 2019-06-20 13:54:00 61 mm[Hg] Unive rsity of pressure [facility] Heart rate 2019-06-20 13:54:00 81 /min [facility] Body temperature 2019-06-20 13:54:00 36.5 [facility]na [facility] Respiratory rate 2019-06-20 13:54:00 18 /min [facility] Body height 2019-06-20 13:54:00 171.5 cm [facility] Body weight 2019-06-20 13:54:00 119.75 kg [facility] BMI 2019-06-20 13:54:00 40.74 kg/m2 [facility] Oxygen saturation in 2019-06-20 13:54:00 98 /min [facility] Arterial blood by [facility] Pulse oximetry Branch Procedures Procedure Date / Time Performed Performing Clinician Sourc e FLU VACC ([id number]), 2019-06-20 14:18:31 [facility]i [facility] [place] 6+ MONTHS, IM, QUAD Medical Bran ch Encounters Start End Encounter Admission Attending Care Care Encounter Source Date/Time Date/Time Type Type Clinicians Facility Department ID 2022-01-07 Outpatient [facility] [id number] [place] 11:58:10 [id number] Health 2022-09-30 2022-09-30 Outpatient R HEATHER [facility] [id number] Univers 12:30:00 12:30:00 EDNA [facility] 2022-03-18 2022-03-18 Outpatient R WARREN [facility] [id number] Univers 08:30:00 08:30:00 [facility] 2022-03-17 2022-03-17 [facility] [id number] Univers 00:00:00 00:00:00 [facility] [id number] it y [facility] [id number] [place] as JOHN?BLEA [phone] Ca dical KNEY [address] [place] [facility] 2020-12-03 2020-12-03 Outpatient R JOANNA [facility] [id number] Univers 08:10:00 08:10:00 GLADYS [facility] 2020-11-05 2020-11-05 Outpatient R JOANNA [facility] [id number] Univers 10:30:00 10:30:00 [facility] 2020-11-04 2020-11-04 Outpatient R JOANNA [facility] [id number] Univers 14:55:00 14:55:00 GLADYS [facility] 2019-06-20 2019-06-20 Outpatient R KING MONA [facility] [id number] Univers 08:40:00 09:38:13 TIMI [facility] 2019-06-20 2019-06-20 Office Timi Burton [facility] [id number] Univers 08:40:00 09:38:13 Visit C TENDOY [id number] i ty of [place] [id number] [place] [id number] Ca dical NAL [address] [place] BUILDING Results This patient has no known results.
[2022-11-02] MEDS ORDERED: MORPHINE 4 MG/ML SYR ONE (11:33)
[2022-11-02] MEDS ORDERED: ONDANSETRON 4 MG/2 ML VIAL ONE (11:33)
[2022-11-02] MEDS ORDERED: NA CHLORIDE 0.9% 1,000 ML ONE (11:33)
[2022-11-02 11:34] LABS: Absolute Lymphocytes (CBC) 2.6 K/uL (0.7-4.9); Lymphocytes % 27.8 % (15.3-44.8); MCV 88.1 fL (80-100); MPV 8.4 fL (7.6-11.3); RBC Red Blood Cell Count 4.76 M/uL (4.33-5.43)
[2022-11-02 11:39] LABS: Protime INR 1.03
--- NOTE | 2022-11-02 11:45 | RAD REPORT ---
EXAM DESCRIPTION: RAD - Foot Left 3 View - 11/02/2022 10:54 am CLINICAL HISTORY: Pain. Wounds to fourth and fifth digits. COMPARISON: None. FINDINGS: Three views of the left foot. No fracture, dislocation, or periosteal reaction. No soft tissue air or foreign body. Diffuse swelling along the lateral forefoot. . IMPRESSION: Lateral forefoot soft tissue swelling. No underlying acute osseous abnormality.
[2022-11-02 11:52] LABS: Albumin 3.6 g/dL (3.4-5.0); Bilirubin Total 0.4 mg/dL (0.2-1.0); Potassium 3.9 mmol/L (3.5-5.1); Protein, Total 7.9 g/dL (6.4-8.2)
[2022-11-02 11:54] LABS: SARS-CoV-2 Antigen Rapid Res Negative (Negative)
[2022-11-02] MEDS ORDERED: VANCOMYCIN 1 GM/VIAL ONE ×2 (12:28→21:32)
[2022-11-02] MEDS ORDERED: CEFEPIME 1 GM/VIAL ONE (12:28)
[2022-11-02] MEDS ORDERED: NA CHLORIDE 0.9% 250 ML ONE (12:28)
[2022-11-02] MEDS ORDERED: NA CHLORIDE 0.9% 100 ML ONE (12:28)
--- NOTE | 2022-11-02 12:47 | ER ---
Nurse's Notes [facility] Name: María Kramer Age: 47 yrs Sex: Male : 1975 Arrival Date: 11/02/2022 Time: 10:36 Bed 5 Private MD: Diagnosis: Cellulitis of left lower limb-failed outpatient treatment Presentation: 11/02 10:43 Chief complaint: Patient states: Wound to toes of L foot, hx of diabetes, was ph prescribed Bactrim and doxycycline but quit taking because of side effects. Wounds noted to 4th and 5th toes, blisters noted to 3rd toe, pt reports chills and pain that shoots up L leg. Coronavirus screen: Vaccine status: Patient reports receiving the 2nd dose of the covid vaccine. Ebola Screen: No symptoms or risks identified at this time. Initial Sepsis Screen: Does the patient meet any 2 criteria? No. Patient's initial sepsis screen is negative. Does the patient have a suspected source of infection? Yes: Skin breakdown/wound. Risk Assessment: Do you want to hurt yourself or someone else? Patient reports no desire to harm self or others. Onset of symptoms was November 02, 2022. 10:43 Method Of Arrival: Ambulatory ph 10:43 Acuity: KAYLAH 3 ph Triage Assessment: 10:46 General: Appears in no apparent distress. Behavior is calm, cooperative, appropriate ph for age, Reports chills for. Pain: Complains of pain in left foot Pain radiates to left leg. Neuro: Level of Consciousness is awake, alert, obeys commands, Oriented to person, place, time, situation. Cardiovascular: Capillary refill < 3 seconds in bilateral fingers Patient's skin is warm and dry. Respiratory: Airway is patent Respiratory effort is even, unlabored, Respiratory pattern is regular, symmetrical. GI: No signs and/or symptoms were reported involving the gastrointestinal system. Derm: Skin is pink, warm \T\ dry. Wound noted plantar aspect of left fourth toe, plantar aspect of left fifth toe, left fourth toe and left fifth toe Other: blisters noted to bottom of 3rd toe. Musculoskeletal: Circulation, motion, and sensation intact. Range of motion: intact in all extremities. Historical: - Allergies: 10:46 No Known Allergies; ph - Home Meds: 10:46 Synthroid 200 mcg Oral tab 1 tab once daily [Active]; ph - PMHx: 10:46 Hypothyroidism; ph 10:46 Diabetes mellitus; ph - Immunization history:: Adult Immunizations unknown. - Social history:: Smoking status: Patient reports the use of cigarette tobacco products, smokes one-half pack cigarettes per day. Screenin:48 [facility] ED Fall Risk Assessment (Adult) History of falling in the last 3 months, ph including since admission No falls in past 3 months (0 pts) Confusion or Disorientation No (0 pts) Intoxicated or Sedated No (0 pts) Impaired Gait Yes (1 pt) Mobility Assist Device Used No (0 pt) Altered Elimination No (0 pt) Score/Fall Risk Level 0 - 2 = Low Risk Oriented to surroundings, Maintained a safe environment, Hourly rounding (assess needs \T\ fall precautionary measures) done. Abuse screen: Denies threats or abuse. Denies injuries from another. Nutritional screening: No deficits noted. Tuberculosis screening: No symptoms or risk factors identified. Assessment: 11:45 Reassessment: SEE TRIAGE ASSESSMENT. ph 12:38 Reassessment: Patient appears in no apparent distress at this time. Patient and/or ph family updated on plan of care and expected duration. Pain level reassessed. Patient is alert, oriented x 3, equal unlabored respirations, skin warm/dry/pink. 14:00 Reassessment: Patient appears in no apparent distress at this time. No changes from jl7 previously documented assessment. Patient and/or family updated on plan of care and expected duration. Pain level reassessed. Patient is alert, oriented x 3, equal unlabored respirations, skin warm/dry/pink. 15:00 Reassessment: Patient appears in no apparent distress at this time. No changes from jl7 previously documented assessment. Patient and/or family updated on plan of care and expected duration. Pain level reassessed. Patient is alert, oriented x 3, equal unlabored respirations, skin warm/dry/pink. 16:00 Reassessment: Patient appears in no apparent distress at this time. No changes from jl7 previously documented assessment. Patient and/or family updated on plan of care and expected duration. Pain level reassessed. Patient is alert, oriented x 3, equal unlabored respirations, skin warm/dry/pink. 17:00 Reassessment: Patient appears in no apparent distress at this time. No changes from jl7 previously documented assessment. Patient and/or family updated on plan of care and expected duration. Pain level reassessed. Patient is alert, oriented x 3, equal unlabored respirations, skin warm/dry/pink. 18:00 Reassessment: Patient appears in no apparent distress at this time. No changes from jl7 previously documented assessment. Patient and/or family updated on plan of care and expected duration. Pain level reassessed. Patient is alert, oriented x 3, equal unlabored respirations, skin warm/dry/pink. 19:34 Reassessment: Patient appears in no apparent distress at this time. Patient and/or jb4 family updated on plan of care and expected duration. Pain level reassessed. Patient is alert, oriented x 3, equal unlabored respirations, skin warm/dry/pink. 19:37 Reassessment: attempted to call report, instructed to wait for call back. jb4 19:52 Reassessment: Patient appears in no apparent distress at this time. Patient and/or aa9 family updated on plan of care and expected duration. Pain level reassessed. Patient is alert, oriented x 3, equal unlabored respirations, skin warm/dry/pink. 20:12 Reassessment:. aa9 Vital Signs: 10:43 BP 149 / 94; Pulse 75; Resp 18; Temp 97.8; Pulse Ox 98% on R/A; Weight 119.75 kg; ph Height 5 ft. 7 in. (170.18 cm); 11:39 BP 119 / 96; Pulse 64; Resp 15; Pulse Ox 94% ; jl7 12:38 BP 135 / 83; Pulse 61; Resp 18; Pulse Ox 100% on R/A; ph 14:00 BP 137 / 81; Pulse 69; Resp 15; Pulse Ox 98% ; jl7 17:30 BP 136 / 95; Pulse 66; Resp 17; Pulse Ox 98% ; jl7 19:34 BP 131 / 70; Pulse 63; Resp 16; Temp 98.5; Pulse Ox 96% on R/A; jb4 10:43 Body Mass Index 41.35 (119.75 kg, 170.18 cm) ph ED Course: 10:36 Patient arrived in ED. mr 10:42 Mary Antunez FNP-C [facility] kb 10:42 Felipe Means MD is Attending Physician. kb 10:43 Lay Menchaca, RN is Primary Nurse. ph 10:46 Triage completed. ph 10:46 Arm band placed on Patient placed in an exam room, on a stretcher, on pulse oximetry. ph 10:48 Patient has correct armband on for positive identification. Bed in low position. Call ph light in reach. Side rails up X 1. Pulse ox on. NIBP on. 11:27 Inserted saline lock: 22 gauge in right forearm, using aseptic technique. Blood rs5 collected. 11:27 CBC with Diff Sent. rs5 11:27 CMP Sent. rs5 11:27 Lactate w/ 2H reflex if indic. Sent. rs5 11:27 Protime (+inr) Sent. rs5 11:27 Ptt, Activated Sent. rs5 12:47 Lili Berger MD is Hospitalizing Provider. kb 19:13 No provider procedures requiring assistance completed. Patient admitted, IV remains in jl7 place. intact, No redness/swelling at site. Administered Medications: 11:44 Drug: Zofran (Ondansetron) 4 mg Route: IVP; Site: right forearm; ph 12:37 Follow up: Response: No adverse reaction ph 11:44 Drug: NS 0.9% 1000 ml Route: IV; Rate: 1000 ml; Site: right forearm; ph 12:37 Follow up: Response: No adverse reaction; IV Status: Completed infusion; IV Intake: ph 1000ml 11:45 Drug: morphine 4 mg Route: IVP; Infused Over: 4 mins; Site: right forearm; ph 12:38 Follow up: Response: No adverse reaction; Pain is decreased; RASS: Alert and Calm (0) ph 12:37 Drug: Cefepime 1 grams Route: IVPB; Rate: 200 ml/hr; Infused Over: 30 mins; Site: right ph forearm; 13:10 Follow up: Response: No adverse reaction; IV Status: Completed infusion ph 13:20 Drug: vancoMYCIN 1 grams Route: IVPB; Infused Over: 2 hrs; Site: right forearm; ph 20:12 Follow up: IV Status: Completed infusion aa9 Medication: 10:48 VIS not applicable for this client. ph Intake: 12:37 IV: 1000ml; Total: 1000ml. ph Outcome: 12:47 Decision to Hospitalize by Provider. kb 19:51 Admitted to Med/surg room 217, with chart, Report called to Celeste aa9 19:51 Condition: stable 19:51 Instructed on the need for admit. 20:12 Patient left the ED. aa9 Signatures: Mary Antunez, [employer] HELPER-Latoya Jeannette GuzmanLay, RN RN ph Franky Burnett, RN RN jb4 Liat Limon, SOPHIA RN jl7 Fadia Jones, RN RN aa9 Jose Alfredo Rod rs5 Corrections: (The following items were deleted from the chart) 11:27 11:27 Inserted saline lock: 20 gauge in right forearm, using aseptic technique. Blood rs5 collected. rs5
--- NOTE | 2022-11-02 12:47 | EDPHYS ---
Physician Documentation [facility] Name: María Kramer Age: 47 yrs Sex: Male : 1975 Arrival Date: 11/02/2022 Time: 10:36 Bed 5 Private MD: ED Physician Felipe Means HPI: 11/02 14:44 This 47 yrs old Male presents to ER via Ambulatory with complaints of Foot kb infection. 14:44 The patient presents with cellulitis of the plantar aspect of left fifth toe and kb plantar aspect of left fourth toe and left foot. Description: draining, erythematous, hot, swollen. Onset: The symptoms/episode began/occurred 1 month(s) ago. Possible cause(s): unknown. Associated signs and symptoms: Pertinent positives: drainage, erythema, fever, swelling. Modifying factors: the symptoms are alleviated by nothing, the symptoms are aggravated by nothing. Severity of symptoms: At their worst the symptoms were moderate, in the emergency department the symptoms are unchanged. The patient has not experienced similar symptoms in the past. The patient has been recently seen by a physician:. Historical: - Allergies: 10:46 No Known Allergies; ph - Home Meds: 10:46 Synthroid 200 mcg Oral tab 1 tab once daily [Active]; ph - PMHx: 10:46 Hypothyroidism; ph 10:46 Diabetes mellitus; ph - Immunization history:: Adult Immunizations unknown. - Social history:: Smoking status: Patient reports the use of cigarette tobacco products, smokes one-half pack cigarettes per day. ROS: 14:44 Constitutional: Negative for fever, chills, and weight loss. kb 14:44 Skin: Positive for cellulitis, erythema, swelling, of the left foot. 14:44 All other systems are negative. Exam: 11:11 ECG was reviewed by the Attending Physician. kb 14:44 Constitutional: This is a well developed, well nourished patient who is awake, alert, kb and in no acute distress. Head/Face: Normocephalic, atraumatic. ENT: Moist Mucous membranes Cardiovascular: Regular rate and rhythm with a normal S1 and S2. No gallops, murmurs, or rubs. No pulse deficits. Respiratory: Respirations even and unlabored. No increased work of breathing. Talking in full sentences Abdomen/GI: Soft, non-tender. No distention Neuro: Awake and alert, GCS 15, oriented to person, place, time, and situation. Moves all extremities. Normal gait. 14:44 Skin: cellulitis, that is moderate, on the plantar aspect of left fifth toe and plantar aspect of left fourth toe and left foot. Vital Signs: 10:43 BP 149 / 94; Pulse 75; Resp 18; Temp 97.8; Pulse Ox 98% on R/A; Weight 119.75 kg; ph Height 5 ft. 7 in. (170.18 cm); 11:39 BP 119 / 96; Pulse 64; Resp 15; Pulse Ox 94% ; jl7 12:38 BP 135 / 83; Pulse 61; Resp 18; Pulse Ox 100% on R/A; ph 14:00 BP 137 / 81; Pulse 69; Resp 15; Pulse Ox 98% ; jl7 17:30 BP 136 / 95; Pulse 66; Resp 17; Pulse Ox 98% ; jl7 19:34 BP 131 / 70; Pulse 63; Resp 16; Temp 98.5; Pulse Ox 96% on R/A; jb4 10:43 Body Mass Index 41.35 (119.75 kg, 170.18 cm) ph MDM: 10:43 Patient medically screened. kb 12:46 Data reviewed: vital signs, nurses notes. Consideration of Admission/Observation kb Patient was admitted/placed on observation. Management of patient was discussed with the following: Hospitalist: Dr Berger accepts pt for admission. 14:38 Differential diagnosis: Abscess, cellulitis, osteomyelitis. Care significantly affected kb by the following chronic conditions: Diabetes. Counseling: I had a detailed discussion with the patient and/or guardian regarding: the historical points, exam findings, and any diagnostic results supporting the discharge/admit diagnosis, lab results, radiology results, the need for further work-up and treatment in the hospital. ED course: Patient is a 47-year-old male who presents for infection of left foot. States he was seen here on October 02 and given clindamycin. PCP changed clindamycin to Bactrim and doxycycline. Reports his tongue started splitting after starting those medications so he stopped them last week. Reports redness swelling and drainage has gotten worse. On exam patient has redness swelling and discharge to left third fourth and fifth digits that is extending into the. Patient reports fever at home. Serum labs and x-ray completed, blood cultures and wound culture sent. Patient admitted for IV antibiotics for failed outpatient therapy.. 11/02 10:48 Order name: Blood Culture Adult (2) kb 11/02 10:48 Order name: CBC with Diff 11/02 10:48 Order name: CMP kb 11/02 10:48 Order name: Lactate w/ 2H reflex if indic. kb 11/02 10:48 Order name: Protime (+inr) kb 11/02 10:48 Order name: Ptt, Activated kb 11/02 10:48 Order name: Wound Culture 11/02 11:23 Order name: Glucose, Ancillary Testing; Complete Time: 11:24 EDMS 11/02 11:26 Order name: SARS RAPID 11/02 11:35 Order name: CBC with Automated Diff; Complete Time: 11:41 EDMS 11/02 11:40 Order name: Protime (+INR); Complete Time: 11:41 EDMS 11/02 11:40 Order name: PTT, Activated Partial Thromb; Complete Time: 11:41 EDMS 11/02 11:52 Order name: Comprehensive Metabolic Panel; Complete Time: 11:52 EDAK 11/02 11:54 Order name: SARS-COV-2 Antigen Rapid; Complete Time: 11:56 EDAK 11/02 10:48 Order name: Foot Left 3 View XRAY 11/02 10:48 Order name: EKG; Complete Time: 10:48 kb 11/02 10:48 Order name: Accucheck; Complete Time: 11:27 kb 11/02 11:45 Order name: RAD; Complete Time: 11:50 EDAK 11/02 12:04 Order name: Lactate w/ 2H reflex if indic.; Complete Time: 12:04 EDAK 11/02 17:00 Order name: CONS Physician Consult EDAK 11/02 17:00 Order name: Heart Healthy EDAK 11/02 17:00 Order name: Basic Metabolic Panel EDAK 11/02 17:00 Order name: Basic Metabolic Panel EDAK 11/02 17:00 Order name: CBC with Automated Diff EDAK 11/02 17:00 Order name: CBC with Automated Diff EDAK 11/02 10:48 Order name: Cardiac monitoring; Complete Time: 11:20 kb 11/02 10:48 Order name: EKG - Nurse/Tech; Complete Time: 11:20 kb 11/02 10:48 Order name: IV Saline Lock - Large Bore; Complete Time: 11:28 kb 11/02 10:48 Order name: Labs collected and sent; Complete Time: 11:27 kb EC:11 Rate is 66 beats/min. Rhythm is regular. QRS Wellman is Normal. UT interval is normal at kb 164 msec. QRS interval is normal at 92 msec. QT interval is normal at 389 msec. Administered Medications: 11:44 Drug: Zofran (Ondansetron) 4 mg Route: IVP; Site: right forearm; ph 12:37 Follow up: Response: No adverse reaction ph 11:44 Drug: NS 0.9% 1000 ml Route: IV; Rate: 1000 ml; Site: right forearm; ph 12:37 Follow up: Response: No adverse reaction; IV Status: Completed infusion; IV Intake: ph 1000ml 11:45 Drug: morphine 4 mg Route: IVP; Infused Over: 4 mins; Site: right forearm; ph 12:38 Follow up: Response: No adverse reaction; Pain is decreased; RASS: Alert and Calm (0) ph 12:37 Drug: Cefepime 1 grams Route: IVPB; Rate: 200 ml/hr; Infused Over: 30 mins; Site: right ph forearm; 13:10 Follow up: Response: No adverse reaction; IV Status: Completed infusion ph 13:20 Drug: vancoMYCIN 1 grams Route: IVPB; Infused Over: 2 hrs; Site: right forearm; ph 20:12 Follow up: IV Status: Completed infusion aa9 Disposition Summary: 11/02/22 12:47 Hospitalization Ordered Hospitalization Status: Inpatient Admission kb Provider: Lili Berger Location: Telemetry/[facility] (Inpatient) Condition: Stable kb Problem: new kb Symptoms: are unchanged kb Bed/Room Type: Standard Room Assignment: 217(11/02/22 18:08) Diagnosis - Cellulitis of left lower limb - failed outpatient treatment(11/02/22 12:47) kb Forms: - Medication Reconciliation Form kb - SBAR form kb Addendum: 11/04/2022 07:16 Co-signature as Attending Physician, Felipe Means MD I reviewed the patient's care r n provided by the Advanced Practice Provider and agree with the diagnosis and treatment plan. Signatures: Dispatcher [employer] Mary Curran, ALLYN-Jonathan SYNTHETIC GEM PRESS OPERATOR-Michelle Zamora, RN RN dw Felipe Means MD MD rn Hall, Patricia, RN RN Fadia Jones RN aa9 Corrections: (The following items were deleted from the chart) 11/02 12:47 12:47 Cellulitis of left lower limb kb kb 17:56 12:47 kb dw 18:08 17:56 210 dw dw
[2022-11-02] MEDS ORDERED: MORPHINE 2 MG/ML SYR IV PRN (16:55)
[2022-11-02] MEDS ORDERED: ACETAMINOPHEN 500 MG TAB PO PRN (16:55)
[2022-11-02] MEDS ORDERED: ONDANSETRON 4 MG/2 ML VIAL IV PRN (16:55)
[2022-11-02] MEDS ORDERED: PIPER TAZO 3.375 GM in NA CHLORIDE 0.9% 100 ML IV SCH (17:00)
[2022-11-02] MEDS ORDERED: VANCOMYCIN 1 GM in NA CHLORIDE 0.9% 250 ML IVPB SCH (17:00)
[2022-11-02 20:27] VITALS: BMI 40.4
[2022-11-02] MEDS: VANCOMYCIN 2 GM in NA CHLORIDE 0.9% 500 ML IVPB SCH (21:00)
[2022-11-02] MEDS ORDERED: NA CHLORIDE 0.9% 500 ML ONE (21:32)
[2022-11-03 03:49] LABS: Hematocrit 37.4 % (39.6-49.0); Lymphocytes % 27.2 % (15.3-44.8); MCV 87.6 fL (80-100); MPV 8.8 fL (7.6-11.3); RBC Red Blood Cell Count 4.27 M/uL (4.33-5.43)
[2022-11-03 04:05] LABS: Potassium 3.7 mmol/L (3.5-5.1)
--- NOTE | 2022-11-03 06:44 | P.HP ---
Certification for Inpatient Patient admitted to: Inpatient With expected LOS: >2 Midnights Patient will require the following post-hospital care: None Practitioner: I am a practitioner with admitting privileges, knowledge of patient current condition, hospital course, and medical plan of care. Services: Services provided to patient in accordance with Admission requirements found in Title 42 Section 412.3 of the Code of Federal Regulations Patient History Date of Service: 11/02/22 Reason for admission: Cellulitis of the left foot; poorly-controlled diabetes History of Present Illness: patient is a 47-year-old gentleman who presents to the hospital with erythema and cellulitis of the left foot. Patient stated that his symptoms started about a month ago. His helped translate for me. Patient is Yemeni-speaking only. the cellulitis was progressing so he went to see his primary care provider prescribed him Bactrim and doxycycline. He stated that he took this for about a week but was having problems with taking them. He stopped taking them and then a few days later his noted that his cellulitis was progressing. She was using Neosporin ointment but since that was not getting better she brought him back into the hospital to be further evaluated. In the emergency room his 4th and 5th toe looked to be significantly erythematous with some drainage. foot x-ray was unremarkable for any signs of osteo. Patient has some swelling of the left foot. He was brought in for evaluation. We will get MRI of the foot to further evaluate. Continue with antibiotic intravenously. Allergies No Known Allergies Allergy (Unverified 11/02/22 16:45) - Past Medical/Surgical History Has patient received pneumonia vaccine in the past: No Diabetic: Yes -: Hypothyroid -: Diabetes Past Surgical History: Patient denies surgical history - Family History Father Medical History: Lung disease Mother Medical History: Cancer Notes: colon - Social History Smoking Status: Current every day smoker Alcohol use: Yes CD- Drugs: No Caffeine use: Yes Place of Residence: Home Review of Systems 10-point ROS is otherwise unremarkable Physical Examination - Vital Signs Temperature: 98 F Blood Pressure: 131/73 Pulse: 76 Respirations: 18 Pulse Ox (%): 95 - Physical Exam General: Alert, In no apparent distress, Oriented x3 HEENT: Atraumatic, PERRLA, Mucous membr. moist/pink, EOMI, Sclerae nonicteric Neck: Supple, 2+ carotid pulse no bruit, No LAD, Without JVD or thyroid abnormality Respiratory: Clear to auscultation bilaterally, Normal air movement Cardiovascular: Regular rate/rhythm, Normal S1 S2 Gastrointestinal: Normal bowel sounds, Soft and benign, Non-distended, No tenderness, No rebound, No guarding Musculoskeletal: No clubbing, No swelling, No tenderness Integumentary: Skin lesion, Tenderness/swelling, Erythema, Warmth Neurological: Normal gait, Normal speech, Normal strength at 5/5 x4 extr, Normal tone, Sensation intact, Cranial nerves 3-12 intact, Normal affect Lymphatics: No axilla or inguinal lymphadenopathy - Studies Laboratory Data (last 24 hrs) 11/02/22 11:22: PT 11.3, INR 1.03, APTT 31.2 11/02/22 11:22: Sodium 137, Potassium 3.9, BUN 12, Creatinine 0.85, Glucose 96, Total Bilirubin 0.4, AST 26, ALT 43, Alkaline Phosphatase 73 11/02/22 11:22: WBC 9.30, Hgb 13.9, Hct 42.0, Plt Count 277 Assessment & Plan - Problems (Diagnosis) (1) Cellulitis of foot, left Current Visit: Yes Status: Acute (2) Diabetic foot Current Visit: Yes Status: Acute - Plan 1. Continue with IV antibiotic 2. Continue with local wound care 3. Wound care consultation/ID consultation 4. Gentle IV hydration 5. Monitor CBC 6. Strict blood sugar monitoring 7. Pain control 8. GI and DVT prophylaxis Discharge Plan: Home Plan to discharge in: Greater than 2 days - Advance Directives Does patient have a Living Will: No Does patient have a Durable POA for Healthcare: No - Code Status/Comfort Care Code Status Assessed: Yes Code Status: Full Code Critical Care: No Time Spent Managing PTS Care (In Minutes): 45
[2022-11-03] MEDS ORDERED: INFLUENZA VACCINE (for 6+ mo) 0.5 ML DOSE IMVAC ONE (08:00)
[2022-11-03] MEDS ORDERED: PIPER TAZO 3.375 GM in NA CHLORIDE 0.9% 100 ML IV SCH (09:00)
--- NOTE | 2022-11-03 09:16 | P.CNS ---
Date of Consult: 11/03/22 Chief Complaint: Cellulitis of the left foot; poorly-controlled diabetes History of Present Illness: Patient is a 47-year-old gentleman who presents to the hospital with erythema and cellulitis of the left foot. Patient stated that his symptoms started about a month ago. His helped translate for me. Patient is Uzbek-speaking only. The cellulitis was progressing so he went to see his primary care provider prescribed him Bactrim and doxycycline. He stated that he took this for about a week but was having problems with taking them. He stopped taking them and then a few days later his noted that his cellulitis was progressing. She was using Neosporin ointment but since that was not getting better she brought him back into the hospital to be further evaluated. In the emergency room his 4th and 5th toe looked to be significantly erythematous with some drainage. foot x-ray was unremarkable for any signs of osteo. Patient has some swelling of the left foot. He was brought in for evaluation ID has been consulted for further IV antibiotics recommendations and management of diabetic foot cellulitis Allergies No Known Allergies Allergy (Unverified 11/02/22 16:45) - Past Medical/Surgical History Diabetic: Yes -: Hypothyroid -: Diabetes - Family History Father Medical History: Lung disease Mother Medical History: Cancer Notes: colon - Social History Smoking Status: Current every day smoker Alcohol use: Yes CD- Drugs: No Caffeine use: Yes Place of Residence: Home Review of Systems 10-point ROS is otherwise unremarkable Musculoskeletal: As per HPI Integumentary: As per HPI Physical Examination Temp Pulse Resp BP Pulse Ox 98.8 F 69 18 129/69 100 11/03/22 08:00 11/03/22 08:00 11/03/22 08:00 11/03/22 08:00 11/03/22 08:00 General: Alert, In no apparent distress, Oriented x3 Neck: Supple Respiratory: Clear to auscultation bilaterally Cardiovascular: Normal S1 S2, Edema (left foot diabetic ulcer with cellulitis) Gastrointestinal: Normal bowel sounds Musculoskeletal: Swelling (left foot diabetic ulcer with cellulitis), Erythema, Tenderness Integumentary: Tenderness/swelling, Erythema, Warmth, Diabetic ulcer (of left 4th and 5 toes), Other (Mild yellowish clear drainage seen) Neurological: Normal speech, Normal tone, Sensation intact, Normal affect Laboratory Data (last 24 hrs) 11/02/22 11:22: PT 11.3, INR 1.03, APTT 31.2 11/02/22 11:22: Sodium 137, Potassium 3.9, BUN 12, Creatinine 0.85, Glucose 96, Total Bilirubin 0.4, AST 26, ALT 43, Alkaline Phosphatase 73 11/02/22 11:22: WBC 9.30, Hgb 13.9, Hct 42.0, Plt Count 277 current medications Acetaminophen (Acetaminophen 500 Mg Tab) 500 mg PO Q6H PRN PRN Reason: PAIN/FEVER Vancomycin HCl 2 gm/ Sodium (Chloride) 500 mls @ 250 mls/hr IVPB Q12HR TONIA Last Admin: 11/02/22 21:00 Dose: 500 mls Piperacillin Sod/Tazobactam (Sod 3.375 gm/ Sodium Chloride) 100 mls @ 25 mls/hr IV Q8HR TONIA; Protocol Morphine Sulfate (Morphine 2 Mg/Ml Syr) 2 mg IV Q4H PRN PRN Reason: Pain scale 5-7 (Moderate) Ondansetron HCl (Ondansetron 4 Mg/2 Ml Vial) 4 mg IV Q4H PRN PRN Reason: NAUSEA / VOMITING Sodium Chloride (Flush Normal Saline 10 Ml) 10 ml IV BID TONIA Last Admin: 11/02/22 21:37 Dose: 10 ml Imagings Data: RAD - Foot Left 3 View - 11/02/2022 FINDINGS: Three views of the left foot. No fracture, dislocation, or periosteal reaction. No soft tissue air or foreign body. Diffuse swelling along the lateral forefoot. . IMPRESSION: Lateral forefoot soft tissue swelling. No underlying acute osseous abnormality MRI - Foot Left Wo Cont - 11/03/2022 FINDINGS: No evidence of osteomyelitis identified with particular attention paid to the fourth and fifth toes. No abscess is seen. No fractures identified. No significant focal degenerative changes. IMPRESSION: No MR evidence of osteomyelitis with particular attention to the fourth and fifth toes - Problems (1) Diabetic foot ulcer with cellulitis Plan: Cultures: - 11/02 Left foot: Gram Neg Rods: Culture pending - 11/02 BC: Culture pending Antibiotics: - Current on IV Vancomycin and Zosyn (11/02- ) Recommendations: - Continue IV Vancomycin and Zosyn - Can be discharged with PO Bactrim for total of 2 weeks (2) Leukocytosis Plan: Most likely due to diabetic foot ulcer with cellulitis WBC: - 11/02: 9.3 - 11/03: 11.1 Will keep monitoring the trends Conclusions/Impression: - Diabetic foot ulcer with cellulitis: Continue IV antibiotics - Leukocytosis - Diabetic Mellitus: Check and monitoring A1C ID will monitor the patient closely for signs of infection with fever and WBC trends Case has been discussed with [place] Thank you Dr. Martin for consultation
--- NOTE | 2022-11-03 09:18 | RAD REPORT ---
EXAM DESCRIPTION: MRI - Foot Left Wo Cont - 11/03/2022 8:54 am CLINICAL HISTORY: osteomyelitis COMPARISON: No comparisons TECHNIQUE: Multiphase, multisequence MR imaging was obtained of the right foot. Contrast was not adm inistered by IV. FINDINGS: No evidence of osteomyelitis identified with particular attention paid to the fourth and f ifth toes. No abscess is seen. No fractures identified. No significant focal degenerative changes. IMPRESSION: No MR evidence of osteomyelitis with particular attention to the fourth and fifth toes.
[2022-11-03] MEDS: VANCOMYCIN 2 GM in NA CHLORIDE 0.9% 500 ML IVPB SCH (09:51)
--- NOTE | 2022-11-03 14:51 | RAD REPORT ---
EXAM DESCRIPTION: US - Lower Extremity Artery Uni Ltd - 11/03/2022 1:26 pm CLINICAL HISTORY: Left lower extremity wound. R/o PAD COMPARISON: No comparisons TECHNIQUE: Left lower extremity arterial Doppler examination was performed with waveform tracing. FINDINGS: Triphasic waveforms are seen throughout the left lower extremity arterial system to the le cristi of the posterior tibial artery. The dorsalis pedis artery demonstrates biphasic flow. IMPRESSION: Mild peripheral vascular disease at the level of the dorsalis pedis artery. Evaluation o f the more proximal left lower extremity arterial system is unremarkable.
--- NOTE | 2022-11-03 14:58 | CON ---
Date of Consultation: 11/03/2022 Reason For Consultation: Wound nonhealing, left foot. History Of Present Illness: The patient is a 47-year-old gentleman, who presented to the emergency r o with a nonhealing wound on his left foot. The patient states that he wears steel toe shoes and g ot some rain water through a hole in his shoe about a month ago following which he developed some bli sters in the wound and was seen in the emergency room, was sent home on clindamycin. He went and saw his PCP who added Bactrim to the antibiotic regimen. The patient's wound, however, did not improve and the patient had side effects from the antibiotics and therefore he decided not to take the antibi otics anymore. He comes in with increasing redness, but no warmth and a nonhealing wound. No fever or chills. No purulent discharge. No sore throat, runny nose, cough, headaches, or dizziness. No c hest pain. Review of Systems: Otherwise unremarkable. Past Medical History: Significant for hypothyroidism and diabetes. Past Surgical History: Negative. Allergies: NONE. Social History: The patient does smoke and drink alcohol. Was counseled on that. Family History: Significant for lung disease in the father and colon cancer in the mother. Physical Examination: Vital Signs: Stable. He is currently afebrile. General: He is awake, alert, and oriented x3. Head and Neck: Cranial nerves 2 through 12 grossly within normal limits. No neck masses. No JVD. Throat clear. Neck is supple. Chest: Clear. Heart: S1, S2. Abdomen: Soft. Extremity: Palpable dorsalis pedis and posterior tibial pulses. On the left lateral foot, there was a partial-thickness red wound with some scab and some blistering on the fourth lateral toe, which wa s partially opened and a sterile gauze was used to debride the rest of it and the fluid that was came out was cultured at the bedside. The eschar was cleaned and it is a partial-thickness wound. There is no warmth. There is erythema present in that area, but is not extending up the foot or in the le g. There is some tenderness present as well. Laboratory Data: Shows a white count of 9.3 on admission and 11.1 currently, but there is no left sh ift. Eosinophils are slightly high. Chemistries reviewed. His sugar is actually very good 96 and 9 7 at this point. His x-ray and MRI reviewed with the radiologist. The patient does not have osteomy elitis. Assessment: A 47-year-old gentleman with diabetes with a nonhealing ulcer on his left foot laterally involving the fourth and fifth toes. There was no abscess. There was equivocal evidence for cellul itis and not clear-cut and there may be related to chemical in the work area where his wound was expo sed. Recommendation: Recommendation would be to go ahead and check an arterial Doppler to make sure that he does not have any peripheral vascular disease and check cultures and adjust the antibiotics accord ingly if it is indeed bacterial infection, but consideration should also be given to a chemical injur y and superimposed viral or fungus involvement. At this time, Silvadene dressing will be employed. The patient [facility]. The plan of care was d iscussed in detail with Dr. Martin, the patient, and family. VIK/MERLINE Voice ID: [id number] Report ID: [id number]
--- NOTE | 2022-11-03 15:22 | P.DS ---
Admission Date: 11/02/22 Discharge Date: 11/03/22 Disposition: ROUTINE DISCHARGE Discharge Condition: GOOD Reason for Admission: Cellulitis of the left foot; poorly-controlled diabetes Consultations: 1. Infectious Diseases 2. 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 María Morrow is Martiniquais-speaking only. The following communication was achieved with the assistance of [employer] certified Martiniquais-Turkish crystal machining coordinator, Roshan Yamile, (ID# [id number]). Mr. María Morrow is a pleasant 47 year old male with a past medical history significant for type 2 diabetes mellitus and hypothyroidism who was admitted to the [facility] on 11/02/2022 for concern of left foot cellulitis. He was admitted to the Medicine service. His left foot x-ray revealed, "lateral forefoot soft tissue swelling. No underlying acute osseous abnormality." His left foot-MRI revealed, "no MR evidence of osteomyelitis with particular attention to the fourth and fifth toes." His left lower extremity arterial Doppler revealed, "mild peripheral vascular disease at the level of the dorsalis pedis artery. Evaluation of the more proximal left lower extremity arterial system is unremarkable." Infectious Diseases was consulted and he was evaluated by Dr. Zambrano. He has cleared him for discharge with 14 days of levofloxacin. General Surgery was consulted and he was evaluated by Dr. Monteiro. He has cleared him for discharge with [facility] silvadene. Incidentally, he was noted to have a TSH of 0.034. He takes 300 mcg of levothyroxine at home. He was advised to reduce the dose to 200 mcg and to follow-up with PCP for repeat TSH levels in about 3-4 weeks. Of note, the initial Infectious Diseases recommendation was for sulfamethoxazole-trimethoprim, which was sent to the pharmacy. I personally called the pharmacy and confirmed that this prescription was cancelled. The pharmacist confirmed that the levofloxacin will be dispensed and the sulfamethoxazole-trimethoprim prescription will be voided. On 11/03/2022, he was seen on rounds and deemed medically stable for discharge. He was discharged with instructions to schedule follow-up appointments with his PCP (BECKA Watters) and with General Surgery (Dr. Monteiro). He was provided prescriptions for levofloxacin and levothyroxine. He was advised to take 81 mg daily for the mild peripheral vascular disease. He was given the opportunity to ask questions and reported no further questions. Furthermore, all questions were answered to the best of my ability. A copy of this discharge summary will be sent to the above providers to facilitate continuity of care. Today, I personally spent 25 minutes on his case, of which greater than 50% of the time was spent in patient education, counseling, and coordination of care as described above. Vital Signs/Physical Exam: Temp Pulse Resp BP Pulse Ox 98.3 F 68 20 166/73 H 98 11/03/22 12:00 11/03/22 12:00 11/03/22 12:00 11/03/22 12:11/03/22 12:00 General: Alert, In no apparent distress, Oriented x3 HEENT: Atraumatic, Mucous membr. moist/pink, EOMI, Sclerae nonicteric Neck: JVD not distended Respiratory: Clear to auscultation bilaterally, Normal air movement Cardiovascular: No edema, Regular rate/rhythm, Normal S1 S2, No gallops, No rubs, No murmurs Gastrointestinal: Normal bowel sounds, Soft and benign, Non-distended, No tenderness, No rebound, No guarding Musculoskeletal: No clubbing Integumentary: No rashes, Skin breakdown (with erythema over the left 4th and 5th toes, no purulence noted) Neurological: Normal speech, Normal affect Laboratory Data at Discharge: WBC 11.10 K/uL (4.3-10.9) H 11/03/22 02:26 Hgb 12.3 g/dL (13.6-17.9) L D 11/03/22 02:26 Hct 37.4 % (39.6-49.0) L 11/03/22 02:26 Plt Count 247 K/uL (152-406) 11/03/22 02:26 PT 11.3 SECONDS (9.5-12.5) 11/02/22 11:22 INR 1.03 11/02/22 11:22 APTT 31.2 SECONDS (24.3-36.9) 11/02/22 11:22 Sodium 138 mmol/L (136-145) 11/03/22 02:26 Potassium 3.7 mmol/L (3.5-5.1) 11/03/22 02: BUN 13 mg/dL (7-18) 11/03/22 02:26 Creatinine 0.81 mg/dL (0.70-1.30) 11/03/22 02: Glucose 97 mg/dL (74-106) 11/03/22 02:26 Total Bilirubin 0.4 mg/dL (0.2-1.0) 11/02/22 11:22 AST 26 U/L (15-37) 11/02/22 11:22 ALT 43 U/L (16-61) 11/02/22 11:22 Alkaline Phosphatase 73 U/L (45-117) 11/02/22 11:22 Home Medications: Aspirin [Aspirin EC 81 MG] 81 mg PO DAILY #1 11/03/22 Levothyroxine Sodium [Levothyroxine] 200 mcg PO DAILY #30 tab 11/03/22 Omeprazole 20 mg PO DAILY 11/03/22 Silver Sulfadiazine Crm [Silvadene*] 1 appl TOP BID #1 jar 11/03/22 clindamycin HCL [Clindamycin HCl] 1 cap PO Q6HR 11/03/22 levoFLOXacin [Levaquin*] 750 mg PO DAILY 13 Days #13 tab 11/03/22 New Medications: Aspirin [Aspirin EC 81 MG] 81 mg PO DAILY #1 levoFLOXacin [Levaquin*] 750 mg PO DAILY 13 Days #13 tab Levothyroxine Sodium [Levothyroxine] 200 mcg PO DAILY #30 tab Silver Sulfadiazine Crm [Silvadene*] 1 appl TOP BID #1 jar Physician Discharge Instructions: 1. Please call and schedule a follow-up appointment with your PCP (BECKA Watters) in 3-5 days 2. Please call and schedule a follow-up appointment with Dr. [facility] in 2-3 days Diet: ADA Activity: Ad tod Followup: william monteiro [Other] - 11/06/22 8:15 am Time spent managing pt's care (in minutes): 25
[2022-11-03] MEDS ORDERED: levoFLOXacin 750 MG TAB PO SCH (15:30)
[2022-11-03] MEDS ORDERED: SMZ./TMP. 800/160 MG TABLET PO SCH (15:30)
[2022-11-03 15:32] VITALS: O2SAT 100
[2022-11-03 16:47] VITALS: BP 137/79; TEMP 97.7
--- NOTE | 2022-11-03 18:42 | EKG ---
Test Date: 2022-11-02 Test Time: 11:05:55 Vice President Underwriting: ZEINAB MEASUREMENT RESULTS: Intervals: Rate: 66 ID: [id number] QRSD: 92 QT: 372 QTc: 389 [place]: P: 62 ID: [id number] QRS: 56 T: 20 INTERPRETIVE STATEMENTS: Normal sinus rhythm Normal ECG No previous ECG available for comparison Electronically Signed On 11-03-22 18:39:32 [employer] by Khanh Herbert
[2022-11-03] MEDS ORDERED: SILVER SULFADIAZINE 1% 50 GM TOP SCH (21:00)
== END 2022-11-03 19:02 | disposition home or self-care (01) ==
LOC: ER 10:33 → INTOOBSV 16:55 → ERHOLD 16:55 → 2ND 19:38
PROVIDERS: ADMIT Hospitalist; ATTEND Internal Medicine
DX: L03.116 Cellulitis of left lower limb (principal); L03.032 Cellulitis of left toe; E11.621 Type 2 diabetes mellitus with foot ulcer; L97.521 Non-pressure chronic ulcer of other part of left foot limited to breakdown of skin; E03.9 Hypothyroidism, unspecified; E11.51 Type 2 diabetes mellitus with diabetic peripheral angiopathy without gangrene; Z20.822 Contact with and (suspected) exposure to COVID-19; Z23 Encounter for immunization
CPT/HCPCS: 96365; 96367; 96361; 93005; 87040 ×2; 87070 ×2; 85025 ×2; 80048; 36415; 87205 ×2; 85610; 82947 ×5; 83605; 85730; 87075; 84443; 80053; 73630; 93926; 73718; 96375; 99285; 96366; 87811; J2543 ×2; J3370 ×2; J2270; J7050; J7040; J7030; J2405; J0692; 87077; 87186; G0378

== ENCOUNTER 2023-03-15 09:06 | Emergency (ER) | payer BC ==
--- OUTSIDE RECORDS SUMMARY | 2023-03-15 09:08 | XMS REPORT | Continuity of Care Document ---
:1975 Author Organization [facility] t Address [address] [facility] [address] [place] [id number] Care Team Providers Name Role Phone EDNA ROMERO Primary Care Physician Unavailable EDNA ROMERO Attending Clinician Unavailable LAKESHA MONTGOMERY Attending Clinician Unavailable Lakesha Montgomery MD Attending Clinician GLADYS MARSHALL Attending Clinician Unavailable TIMI BURTON III Attending Clinician Unavailable King MONA MD, James C Attending Clinician Payers Payer Name Policy Type Policy Number Effective Date Expiration Date [facility] [id number] 2021 00:00:00 [facility] [id number] 2022 00:00:00 COMMERCIAL [id number] 2021 NON-CONTRACT 00:00:00 GENERIC Problems Condition Condition Condition Status Onset Resolution Last Treating Co mments Source Name Details Category Date Date Treatment Clinician Date History of History of Disease Active 2018-09 U karsteners [facility] Graves' 0-14 ity of disease disease 00:00: [address] Branch Prediabete Prediabete Disease Active U denis s s 6-26 ity of 00:00: [place] [id number] Medical Branch Hyperlipid Hyperlipid Disease Active U [...] 02-21 ity of 00:00: [place] 00 Medical [place] Social History Social Habit Start Date Stop Date Quantity Comments Source History of tobacco Cigarette Smoker University of use [facility] Alcohol intake 2019-06-20 2019-06-20 0 /d University 00:00:00 00:00:00 [facility] Cigarettes smoked 2018-03-15 2018-03-15 Univers ity of current (pack per 00:00:00 00:00:00 [facility] ) - Reported Branch Cigarette 2018-03-15 2018-03-15 University of pack-years 00:00:00 00:00:00 [facility] Tobacco use and 2018-03-15 2018-03-15 Smokeless Universit y of exposure 00:00:00 00:00:00 tobacco non-user [facility] [place] Sex Ass[birth year] Universit y of 00:00:00 00:00:00 [facility] Smoking Status Start Date Stop Date Source Smokes tobacco daily 2018-03-15 00:00:00 Univers ity of [facility] Medications Ordered Filled Start Stop Current Ordering Indication Dosage Frequency Signature Comments Components Source Medication Medication Date Date Medication? Clinician (SIG) Name Name traMADoL 2020-09 Yes Take by Univer s 100 mg Tab 2-20 mouth. ity of 10:47: [address] traMADoL 2020-09 Yes Take by Univer s 100 mg Tab 2-20 mouth. ity of 10:47: [address] fluticasone 2018-09 Yes [id number] 1{spray Use 1 Univers propionate 0-14 } [place] in ity o f 50 00:00: each [place] mcg/actuati 00 nostril 2 Med ical on nasal (two) Branch spray times daily. fluticasone 2018-09 Yes [id number] 1{spray Use 1 Univers propionate 0-14 } [place] in ity o f 50 00:00: each [place] mcg/actuati 00 nostril 2 Med ical on nasal (two) Branch spray times daily. levothyroxi 2017-09 Yes [id number] 25ug Take 1 Univers ne 25 mcg 0-26 tablet by ity o f tablet 00:00: mouth [place] 00 every Medical morning. Branch levothyroxi 2017-09 Yes [id number] 200ug Take 1 Univers ne 0-26 tablet by ity of (SYNTHROID) 00:00: mouth [place] 200 mcg 00 every Medical tablet morning. Branch omeprazole 2017-09 Yes [id number] 20mg Take 1 Univers 20 mg 0-26 capsule by ity of capsule 00:00: mouth [place] 00 daily. Medical Branch levothyroxi 2017-09 Yes [id number] 25ug Take 1 Univers ne 25 mcg 0-26 tablet by ity o f tablet 00:00: mouth [place] 00 every Medical morning. Branch levothyroxi 2017-09 Yes [id number] 200ug Take 1 Univers ne 0-26 tablet by ity of (SYNTHROID) 00:00: mouth [place] 200 mcg 00 every Medical tablet morning. Branch omeprazole 2017-09 Yes [id number] 20mg Take 1 Univers 20 mg 0-26 [...] Immunizations Ordered Filled Immunization Date Status Comments [facility] e Immunization Name Name SARS-COV-2 COVID-19 2020-12-03 Completed Unive rsity of MODERNA VACCINE 00:00:00 [place] Med ical Branch SARS-COV-2 COVID-19 2020-12-03 Completed Unive rsity of MODERNA VACCINE 00:00:00 [facility] SARS-COV-2 COVID-19 2020-11-05 Completed Unive rsity of MODERNA VACCINE 00:00:00 [facility] SARS-COV-2 COVID-19 2020-11-05 Completed Unive rsity of MODERNA VACCINE 00:00:00 [facility] Influenza Virus 2019-06-20 Completed Universit y of Vaccine Quad .5 mL 00:00:00 [facility] IM 6+ MO Branch Influenza Virus 2019-06-20 Completed Universit y of Vaccine [place] .5 mL 00:00:00 [facility] IM 6+ MO Branch Influenza Virus 2016-09-16 Completed Universit y of Vaccine Quad ID 00:00:00 [facility] 18-64 YRS Branch Influenza Virus 2016-09-16 Completed Universit y of Vaccine Quad ID 00:00:00 [facility] 18-64 YRS [place] Vital Signs Vital Name Observation Time Observation Value Comments Source Systolic blood 2019-06-20 13:54:00 102 mm[Hg] Univer sity of pressure [facility] Diastolic blood 2019-06-20 13:54:00 61 mm[Hg] Unive rsity of pressure [facility] Heart rate 2019-06-20 13:54:00 81 /min [facility] Body temperature 2019-06-20 13:54:00 36.5 Tatianna [facility] Respiratory rate 2019-06-20 13:54:00 18 /min [facility] Body height 2019-06-20 13:54:00 171.5 cm [facility] Body weight 2019-06-20 13:54:00 119.75 kg [facility] BMI 2019-06-20 13:54:00 40.74 kg/m2 [facility] Oxygen saturation in 2019-06-20 13:54:00 98 /min [facility] Arterial blood by [facility] Pulse oximetry Branch Procedures Procedure Date / Time Performed Performing Clinician Sourc e FLU VACC ([id number]), 2019-06-20 14:18:31 [facility]i [facility] [place] 6+ MONTHS, IM, QUAD Medical Bran ch Encounters Start End Encounter Admission Attending Care Care Encounter Source Date/Time Date/Time Type Type Clinicians Facility Department ID 2022-01-07 Outpatient [facility] [id number] [place] 11:58:10 [id number] Health 2022-09-30 2022-09-30 Outpatient R HEATHER [facility] [id number] Univers 12:30:00 12:30:00 EDNA [facility] 2022-03-18 2022-03-18 Outpatient R WARREN [facility] [id number] Univers 08:30:00 08:30:00 [facility]22-[facility] 2022-03-17 [facility] [id number] Univers 00:00:00 00:00:00 [facility] [id number] it y of [facility] [id number] [place] as JOHN?BLEA [phone] Ga dical [place] [address] [place] [facility] 2020-12-03 2020-12-03 Outpatient R JOANNA [facility] [id number] Univers 08:10:00 08:10:00 GLADYS [facility] 2020-11-05 2020-11-05 Outpatient R JOANNA [facility] [id number] Univers 10:30:00 10:30:00 [facility] 2020-11-04 2020-11-04 Outpatient R JONANA [facility] [id number] Univers 14:55:00 14:55:00 GLADYS [facility] 2019-06-20 2019-06-20 Outpatient R KING MONA [facility] [id number] Univers 08:40:00 09:38:13 TIMI [facility] 2019-06-20 2019-06-20 Office Timi Burton [facility] [id number] Univers 08:40:00 09:38:13 Visit C ALLEN [id number] i ty of [place] [id number] [place] [phone] Ga dical NAL [address] [place] BUILDING Results This patient has no known results.
[2023-03-15] MEDS ORDERED: ASPIRIN 81 MG CHEWABLE TABLET ONE (09:29)
[2023-03-15 09:43] LABS: Absolute Lymphocytes (CBC) 2.5 K/uL (0.7-4.9); Hematocrit 42.5 % (39.6-49.0); Lymphocytes % 24.9 % (15.3-44.8); MPV 8.3 fL (7.6-11.3); RBC Red Blood Cell Count 4.83 M/uL (4.33-5.43)
[2023-03-15 09:53] LABS: Protime INR 0.98
[2023-03-15 10:09] LABS: ALT/SGPT 37 U/L (16-61); AST/SGOT 21 U/L (15-37); Albumin 3.8 g/dL (3.4-5.0); Alkaline Phosphatase 74 U/L (45-117); BUN Blood Urea Nitrogen 13 mg/dL (7-18); Bicarbonate 27 mEq/L (21-32); Bilirubin Total 0.2 mg/dL (0.2-1.0); Glomerular Filtration Rate 101 ml/min (=/>90); Glucose Level 98 mg/dL (74-106); Magnesium 2.3 mg/dL (1.6-2.4); NT PRO-BNP 16 pg/mL (<125); Potassium 3.9 mEq/L (3.5-5.1); Protein, Total 8.1 g/dL (6.4-8.2); Sodium Level 139 mEq/L (136-145); Troponin High Sensitivity 7.5 pg/mL (<58.9)
[2023-03-15 10:10] LABS: Bilirubin Direct < 0.1 mg/dL (0-0.2); Bilirubin Indirect, Calculated ND mg/dL (0.2-0.8)
--- NOTE | 2023-03-15 10:39 | RAD REPORT ---
EXAM DESCRIPTION: Kiana Single View03/15/2023 9:42 am CLINICAL HISTORY: CHEST PAIN COMPARISON: No comparisons TECHNIQUE: Portable AP view of the chest. FINDINGS: The lungs are clear. No pneumothorax or effusion. The cardiomediastinal contours are unre markable. IMPRESSION: No acute cardiopulmonary process.
--- NOTE | 2023-03-15 11:33 | RAD REPORT ---
EXAM DESCRIPTION: CT - Chest Abd Pelvis Wo Con - 03/15/2023 10:43 am CLINICAL HISTORY: DISSECTION COMPARISON: No comparisons TECHNIQUE: Noncontrast thin axial CT images of the chest, abdomen, and pelvis. Multiplanar reformats were generated and reviewed. All CT scans are performed using dose optimization technique as appropriate and may include automated exposure control or mA/KV adjustment according to patient size. FINDINGS: The lungs are clear of infiltrates. Scattered small nodules, the largest is in the subpleu ral right middle lobe, measuring up to 6 millimeter. Many of these are potentially calcified.No pleur al or pericardial effusion.No intrathoracic adenopathy. Heart is normal in size. Thoracic and abdominal aorta are normal in caliber. Mild atherosclerotic cisco cifications along the distal abdominal aorta and its bifurcation. No hyperdense mural hematoma or oth er abnormalities within limits of noncontrast CT. The liver shows diffuse parenchymal hypoattenuation suggesting steatosis. Spleen, pancreas, adrenal g lands and gallbladder are within normal limits. 2 millimeter nonobstructing right lower renal pole c alculus. No other suspicious parenchymal abnormalities of the kidneys. Nonspecific fat stranding in the root of the mesentery. No bowel obstruction, free air, free fluid or abscess. Normal appendix. No pathologic lymphadenopath y in the abdomen or pelvis. No worrisome osseous finding. IMPRESSION: No acute traumatic findings. Nonobstructing right lower renal pole 2 millimeter calculus. Numerous small pulmonary nodules, many of which are calcified, may represent sequelae of remote granu lomatous infection. Nonspecific fat stranding at the root of the mesenteries, sometimes seen as an idiopathic finding, al though this can be due to numerous etiologies, including infection and inflammation.
--- NOTE | 2023-03-15 12:06 | EDPHYS ---
Physician Documentation [facility] Name: María Kramer Age: 47 yrs Sex: Male : 1975 Arrival Date: 03/15/2023 Time: 09:[address] Private MD: Chito Zapien HPI: 03/15 09:17 This 47 yrs old Male presents to ER via Ambulatory with complaints of Chest sb4 Pain. 09:17 Onset: The symptoms/episode began/occurred last night. Associated signs and symptoms: sb4 Pertinent positives: chest pain, shortness of breath, wheezing, nausea. Modifying factors: The patient symptoms are alleviated by nothing, the patient symptoms are aggravated by nothing. The patient has not experienced similar symptoms in the past. The patient has been recently seen by a physician: Dr. Obdulia Root. 47-year-old male past medical history of insulin-dependent type 2 diabetes and hypothyroidism presents with complaints of left-sided chest pain. He states that it started last night and it was a 10 out of 10, associated with shortness of breath, anxiety, nausea. He states that it radiates to his back. This morning he rates it as a 5 out of 10. He denies any cardiac history. He is a daily smoker. Historical: - Allergies: 09:17 No Known Allergies; ap3 - Home Meds: 09:17 Synthroid 200 mcg Oral tab 1 tab once daily [Active]; insulin [Active]; ap3 - PMHx: 09:17 diabetes mellitus; Hypothyroidism; ap3 - Immunization history:: Client reports receiving the 2nd dose of the Covid vaccine. - Social history:: Smoking status: Patient reports the use of cigarette tobacco products, smokes one-half pack cigarettes per day. ROS: 09:17 Constitutional: Negative for fever, chills, and weight loss, Eyes: Negative for injury, sb4 pain, redness, and discharge, ENT: Negative for injury, pain, and discharge, Respiratory: Negative for shortness of breath, cough, wheezing, and pleuritic chest pain, Back: Negative for injury and pain, MS/Extremity: Negative for injury and deformity, Skin: Negative for injury, rash, and discoloration, Neuro: Negative for headache, weakness, numbness, tingling, and seizure. 09:17 Cardiovascular: Positive for chest pain, Negative for edema, orthopnea, palpitations. Exam: 09:17 Constitutional: This is a well developed, well nourished patient who is awake, alert, sb4 and in no acute distress. Head/Face: Normocephalic, atraumatic. Eyes: Extra-ocular motions intact. Periorbital areas with no swelling, redness, or edema. ENT: Mucous membranes moist. Cardiovascular: Regular rate and rhythm with a normal S1 and S2. Abdomen/GI: Soft, non-tender, no distension. Back: No spinal tenderness. No costovertebral tenderness. Full range of motion. Skin: Warm, dry with normal turgor. Normal color with no rashes, no lesions, and no evidence of cellulitis. MS/ Extremity: Pulses equal, no cyanosis. Neurovascular intact. Full, normal range of motion. Neuro: Awake and alert, GCS 15, oriented to person, place, time, and situation. Cranial nerves II-XII grossly intact. Motor strength 5/5 in all extremities. Sensory grossly intact. Cerebellar exam normal. Normal gait. 09:17 Respiratory: the patient does not display signs of respiratory distress, Respirations: normal, Breath sounds: wheezing: is heard diffusely. Vital Signs: 09:15 BP 134 / 89; Pulse 62; Resp 17; Temp 98.8(O); Pulse Ox 98% on R/A; Weight 118 kg; Pain ap3 5/10; 10:00 BP 120 / 68; Pulse 70; Resp 15; Pulse Ox 98% ; bp 11:00 BP 133 / 97; Pulse 66; Resp 15; Pulse Ox 98% ; bp 11:54 BP 129 / 79; Pulse 61; Resp 16; Pulse Ox 98% ; bp 09:15 Pain Scale: Adult ap3 MDM: 09:09 Patient medically screened. sb4 09:20 Differential diagnosis: stemi, nstemi, unstable angina, aortic dissection. sb4 12:04 Data reviewed: vital signs, nurses notes, lab test result(s), EKG, radiologic studies, sb4 I have discussed the patient's presentation/case with the attending Emergency Department Physician; and as a result, I will discharge patient. Consideration of Admission/Observation Escalation of care including admission/observation considered. Care significantly affected by the following chronic conditions: Diabetes. Scoring Tools HEART Score: Total Score = 3. 12:04 Counseling: I had a detailed discussion with the patient and/or guardian regarding: the sb4 historical points, exam findings, and any diagnostic results supporting the discharge/admit diagnosis, lab results, radiology results, the need for outpatient follow up, a entertainment manager. Special discussion: Based on the patient's history, exam, and Dx evaluation, there is no indication for emergent intervention or inpatient Tx. It is understood by the patient/guardian that if the Sx's persist or worsen they need to return immediately for re-evaluation. Based on the history and exam findings, there is no indication for further emergent testing or inpatient evaluation. I discussed with the patient/guardian the need to see the entertainment manager for further evaluation of the symptoms. 03/15 09:09 Order name: Basic Metabolic Panel; Complete Time: 10:15 sb4 03/15 09:09 Order name: CBC with Diff; Complete Time: 09:57 sb4 03/15 09:09 Order name: LFT's; Complete Time: 10:15 sb4 03/15 09:09 Order name: Magnesium; Complete Time: 10:15 sb4 03/15 09:09 Order name: NT PRO-BNP; Complete Time: 10:15 sb4 03/15 09:09 Order name: PT-INR; Complete Time: 09:57 sb4 03/15 09:09 Order name: Troponin HS; Complete Time: 10:15 sb4 03/15 10:17 Order name: Troponin High Sensitivity: repeat draw at 11:30 please; Complete Time: 12:04sb4 03/15 09:09 Order name: XRAY Chest (1 view); Complete Time: 10:46 sb4 03/15 10:41 Order name: Chest Abd Pelvis Wo Con; Complete Time: 11:36 EDMS 03/15 09:09 Order name: EKG; Complete Time: 09:10 sb4 03/15 09:09 Order name: Cardiac monitoring; Complete Time: 09:14 sb4 03/15 09:09 Order name: EKG - Nurse/Tech; Complete Time: 09:18 sb4 03/15 09:09 Order name: IV Saline Lock; Complete Time: 09:24 sb4 03/15 09:09 Order name: Labs collected and sent; Complete Time: 09:24 sb4 03/15 09:09 Order name: O2 Per Protocol; Complete Time: 09:14 sb4 03/15 09:09 Order name: O2 Sat Monitoring; Complete Time: : sb4 EC:26 Rate is 67 beats/min. Rhythm is regular, Normal Sinus Rhythm. QRS [place] is Normal. [place] sb4 interval is normal at 168 msec. QRS interval is normal at 92 msec. QT interval is normal at 374 msec. No Q waves. Clinical impression: Normal ECG. Interpreted by me. Reviewed by me. Administered Medications: :24 Drug: Aspirin PO Chewable Tablet 324 mg Route: PO; ap3 Disposition Summary: 03/15/23 12:06 Discharge Ordered Location: Home sb4 Problem: new sb4 Symptoms: have improved sb4 Condition: Stable sb4 Diagnosis - Chest pain, unspecified sb4 Followup: sb4 - With: - When: Tomorrow - Reason: Further diagnostic work-up, Recheck today's complaints, Re-evaluation by your physician Discharge Instructions: - Discharge Summary Sheet sb4 - Nonspecific Chest Pain, Adult, Jowp-gw-Ilac sb4 Forms: - Work release form eh3 - Medication Reconciliation Form sb4 - Thank You Letter sb4 - Antibiotic Education sb4 - Prescription Opioid Use sb4 - [email or web address] sb4 Signatures: Dispatcher [employer] Odalys Ibrahim RN RN ap3 Ju Root PA-C PA-C sb4 Corrections: (The following items were deleted from the chart) 10:41 10:16 Angio Aorta For Dissection+CT.RAD.BRZ ordered. EDMS EDMS
--- NOTE | 2023-03-15 12:06 | ER ---
Nurse's Notes [facility] Name: María Kramer Age: 47 yrs Sex: Male : 1975 Arrival Date: 03/15/2023 Time: 09:[address] Private MD: Diagnosis: Chest pain, unspecified Presentation: 03/15 09:15 Chief complaint: Patient states: he started having chest pain last night along with ap3 some shortness of breath. patient states when it happened he felt anxious and couldn't breathe. patient reports the pain was 10/10 last night, but it is now 5/10. Coronavirus screen: At this time, the client does not indicate any symptoms associated with coronavirus-19. Ebola Screen: No symptoms or risks identified at this time. Initial Sepsis Screen: Does the patient meet any 2 criteria? No. Patient's initial sepsis screen is negative. Does the patient have a suspected source of infection? No. Patient's initial sepsis screen is negative. Risk Assessment: Do you want to hurt yourself or someone else? Patient reports no desire to harm self or others. Onset of symptoms was March 14, 2023. 09:15 Method Of Arrival: Ambulatory ap3 09:15 Acuity: KAYLAH 2 ap3 Triage Assessment: 09:17 General: Appears in no apparent distress. Behavior is calm, cooperative. Pain: ap3 Complains of pain in chest Pain currently is 5 out of 10 on a pain scale. at worst was 10 out of 10 on a pain scale. Pain began 1 day ago. Neuro: Level of Consciousness is awake, alert, obeys commands, Oriented to person, place, time, situation. Cardiovascular: Reports chest pain, shortness of breath, Patient's skin is warm and dry. Respiratory: Airway is patent Respiratory effort is even, unlabored, Respiratory pattern is regular, symmetrical. Historical: - Allergies: 09:17 No Known Allergies; ap3 - Home Meds: :17 Synthroid 200 mcg Oral tab 1 tab once daily [Active]; insulin [Active]; ap3 - PMHx: 09:17 diabetes mellitus; Hypothyroidism; ap3 - Immunization history:: Client reports receiving the 2nd dose of the Covid vaccine. - Social history:: Smoking status: Patient reports the use of cigarette tobacco products, smokes one-half pack cigarettes per day. Screenin:18 [facility] ED Fall Risk Assessment (Adult) History of falling in the last 3 months, ap3 including since admission No falls in past 3 months (0 pts). Abuse screen: Denies threats or abuse. Nutritional screening: No deficits noted. Tuberculosis screening: No symptoms or risk factors identified. Assessment: 09:37 Reassessment: Patient and/or family updated on plan of care and expected duration. Pain ap3 level reassessed. Patient is alert, oriented x 3, equal unlabored respirations, skin warm/dry/pink. 11:58 Reassessment: Patient appears in no apparent distress at this time. Patient is alert, bp oriented x 3, equal unlabored respirations, skin warm/dry/pink. 13:03 Pain: Pain does not radiate. eh3 Vital Signs: 09:15 BP 134 / 89; Pulse 62; Resp 17; Temp 98.8(O); Pulse Ox 98% on R/A; Weight 118 kg; Pain ap3 5/10; 10:00 BP 120 / 68; Pulse 70; Resp 15; Pulse Ox 98% ; bp 11:00 BP 133 / 97; Pulse 66; Resp 15; Pulse Ox 98% ; bp 11:54 BP 129 / 79; Pulse 61; Resp 16; Pulse Ox 98% ; bp 09:15 Pain Scale: Adult ap3 ED Course: 09:06 Patient arrived in ED. im 09:08 Ju Root PA-C is PHCP. sb4 09:08 Chito Quintana MD is Attending Physician. sb4 09:09 Arturo Wheeler, SOPHIA is Primary Nurse. bp 09:17 Triage completed. ap3 09:18 Arm band placed on right wrist. ap3 09:18 Patient has correct armband on for positive identification. Placed in gown. Bed in low ap3 position. Call light in reach. quality assurance monitor final on. Pulse ox on. NIBP on. 09:18 Patient maintains SpO2 saturation greater than 95% on room air. ap3 09:18 EKG done. ap3 09:25 Inserted saline lock: 20 gauge in right antecubital area, using aseptic technique. ap3 Blood collected. 09:29 Basic Metabolic Panel Sent. mm9 09:29 CBC with Diff Sent. mm9 09:29 LFT's Sent. mm9 09:29 Magnesium Sent. mm9 09:29 NT PRO-BNP Sent. mm9 09:29 PT-INR Sent. mm9 09:29 Troponin HS Sent. mm9 09:29 Initial lab(s) drawn, by me, sent to lab. EKG done, by ED staff, reviewed by Ju Root PA-C. Inserted saline lock: 20 gauge in right antecubital area, using aseptic technique. 09:30 Patient has correct armband on for positive identification. Warm blanket given. Pillow mm9 given. Client placed on continuous cardiac and pulse oximetry monitoring. NIBP monitoring applied. quality assurance monitor final on. Pulse ox on. NIBP on. 09:44 XRAY Chest (1 view) In Process Unspecified. EDMS 10:45 Chest Abd Pelvis Wo Con In Process Unspecified. EDMS 12:06 Khanh Herbert MD is Referral Physician. sb4 13:03 No provider procedures requiring assistance completed. IV discontinued, intact, eh3 bleeding controlled, No redness/swelling at site. Pressure dressing applied. Administered Medications: 09:24 Drug: Aspirin PO Chewable Tablet 324 mg Route: PO; ap3 Medication: 13:03 VIS not applicable for this client. eh3 Outcome: 12:06 Discharge ordered by . sb4 13:03 Discharged to home with family. eh3 13:03 Condition: stable 13:03 Discharge instructions given to patient, family, Instructed on discharge instructions, follow up and referral plans. 13:05 Patient left the ED. eh3 Signatures: Dispatcher [employer] EDMS Arturo Wheeler RN RN bp Prokisch, Amanda, RN RN ap3 Hall, Erin, RN RN eh3 Brown, Sophia, PA-C PA-C sb4 Martinez, Maria mm9 Vicki White
[2023-03-15 13:11] VITALS: TEMP 98.8; O2SAT 98
[2023-03-15 13:16] VITALS: BP 129/79
--- NOTE | 2023-03-16 17:13 | EKG ---
Test Date: 2023-03-15 Test Time: 09:25:07 Modular Set Crew Member: WILMAN MEASUREMENT RESULTS: Intervals: Rate: 67 ID: [id number] QRSD: 92 QT: 374 QTc: 395 [place]: P: 71 ID: [id number] QRS: 62 T: 60 INTERPRETIVE STATEMENTS: Normal sinus rhythm Normal ECG Compared to ECG 11/02/2022 11:05:55 No significant changes Electronically Signed On 03-16-23 17:11:09 CDT by Khanh Herbert
== END 2023-03-15 13:05 | disposition home or self-care (01) ==
LOC: ER 09:06
DX: R07.89 Other chest pain (principal); E11.9 Type 2 diabetes mellitus without complications; Z79.4 Long term (current) use of insulin; E03.9 Hypothyroidism, unspecified; F17.210 Nicotine dependence, cigarettes, uncomplicated
CPT/HCPCS: 36415; 71045; 71250; 74176; 80048; 80076; 83735; 83880; 84484; 85025; 85610; 93005; 99285

== ENCOUNTER 2025-04-21 09:33 | Emergency (ER) | payer OTHER ==
--- OUTSIDE RECORDS SUMMARY | 2025-04-21 09:36 | XMS REPORT | Continuity of Care Document ---
Author Name Unknown Address [address] [facility] [address] [place] [address] Organization [facility] [place] Address [address] [facility] [address] [place] [address] Care Team Providers Care Tire Shop Manager Name Role Phone Pcp, Patient Does Not Have A Primary Care Physic deric Edna Pacheco Attending Clinician [phone] Unknown, Attending Attending Clinician Unavailab le UNKNOWN, ATTENDING Attending Clinician Unavailab EDNA Partida Attending Clinician Unavailable Doctor Unassigned, Hendrix Attending Clinician U LAKESHA Hanna Attending Clinician Unavailable Lakesha Montgomery MD Attending Clinician GLADYS MARSHALL Attending Clinician Unavailable TIMI BURTON III Attending Clinician Unavailabl tami Burton III, MD, James C Attending Clinician [phone] Payers Payer Name Policy Type Policy Number Effective Date Expirati on Date Source [facility] [id number] 2021 00:00:00 COMMERCIAL NON-CONTRACT GENERIC [id number] 2021 00:00:00 Problems Condition Name Condition Details Condition Category Status Onset Date Resolution Date Last Treatment Date Treating Clinician Comments Source History of Graves' disease History of Graves' disease Disease Active 2018-09 014 00:00: 00 [facility] Prediabete s Prediabete s Disease Active 03-02 00:00: 00 [facility] Hyperlipid emia, unspecifie d hyperlipid emia type Hyperlipid emia, unspecifie d hyperlipid emia type Disease Active 09-16 00:00: 00 [facility] Gastroesop hageal reflux disease without esophagiti s Gastroesop hageal reflux disease without esophagiti s Disease Active 2015-09 00:00: 00 [facility] Hypothyroi dism, unspecifie d type Hypothyroi dism, unspecifie d type Disease Active 2015-09 00:00: 00 [facility] Allergies, Adverse Reactions, Alerts Allergy Name Allergy Type Status Severity Reaction(s) Onset Date Inactive Date Treating Clinician Comments Source Iodine Propensi ty to adverse reaction s Active Anaphylaxis 02-21 00:00: 00 [facility] IODINE DRUG INGREDI Active Anaphylaxis 02-21 00:00: 00 [facility] Social History Social Habit Start Date Stop Date Quantity Comments Source History of tobacco use Cigarette Smoker [facility] of Social function 2020-04-12 00:00:00 2020-04-12 00:00:00 [facility] Alcohol intake 2019-06-20 00:00:00 2019-06-20 00:00:00 0 /d [facility] Cigarettes smoked current (pack per day) - Reported 2018-03-15 00:00:00 2018-03-15 00:00:00 [facility] Cigarette pack-years 2018-03-15 00:00:00 2018-03-15 00:00:00 [facility] Tobacco use and exposure 2018-03-15 00:00:00 2018-03-15 00:00:00 Smokeless tobacco non-user [facility] Sex Ass[birth year] At 1975 00:00:00 1975 00:00:00 [facility] Smoking Status Start Date Stop Date Source Smokes tobacco daily 2018-03-15 00:00:00 [facility] Medications Ordered Medication Name Filled Medication Name Start Date Stop Date Current Medication? Ordering Clinician Indication Dosage Frequency Signature (SIG) Comments Components Source oseltamivir (TAMIFLU) 75 mg capsule 2022-09 00:00: 00 08-01 05:59 :00 No [id number] 75mg Take 1 capsule by mouth 2 (two) times daily for 5 days. [facility] traMADoL 100 mg Tab 2020-09 2 10:47: 39 Yes Take by mouth. [facility] fluticasone propionate 50 mcg/actuati on nasal spray 2018-09 014 00:00: 00 Yes [id number] 1{spray } Use 1 [place] in each nostril 2 (two) times daily. [facility] levothyroxi ne 25 mcg tablet 2017-09 00:00: 00 Yes [id number] 25ug Take 1 tablet by mouth every morning. [facility] levothyroxi ne (SYNTHROID) 200 mcg tablet 2017-09 00:00: 00 Yes [id number] 200ug Take 1 tablet by mouth every morning. [facility] omeprazole 20 mg capsule 2017-09 00:00: 00 Yes [id number] 20mg Take 1 capsule by mouth daily. [facility] albuterol 2.5 mg /3 mL (0.083 %) nebulizer solution 2016-09 00:00: 00 Yes 2.5mg Inhale 3 mL every 4 (four) hours as needed for Wheezing or Shortness of Breath. [facility] Immunizations Ordered Immunization Name Filled Immunization Name Date Status Comments Source Influenza Virus Vaccine Quad ID 18-64 YRS 2023-07-26 10:40:00 Completed [facility] Influenza Virus Vaccine Quad .5 mL IM 6+ MO (FLUZONE/FLULAVAL/F LUARIX) 2023-07-26 10:40:00 Completed [facility] SARS-COV-2 COVID-19 MODERNA 12+ YRS VACCINE 2023-07-26 10:40:00 Completed [facility] Influenza Virus Vaccine Quad ID 18-64 YRS 2023-07-26 00:00:00 Completed [facility] Influenza Virus Vaccine Quad .5 mL IM 6+ MO (FLUZONE/FLULAVAL/F LUARIX) 2023-07-26 00:00:00 Completed [facility] SARS-COV-2 COVID-19 MODERNA 12+ YRS VACCINE 2023-07-26 00:00:00 Completed [facility] SARS-COV-2 COVID-19 MODERNA VACCINE 2020-12-03 00:00:00 Completed [facility] SARS-COV-2 COVID-19 MODERNA VACCINE 2020-12-03 00:00:00 Completed [facility] SARS-COV-2 COVID-19 MODERNA VACCINE 2020-11-05 00:00:00 Completed [facility] SARS-COV-2 COVID-19 MODERNA VACCINE 2020-11-05 00:00:00 Completed [facility] Influenza Virus Vaccine Quad .5 mL IM 6+ MO 2019-06-20 00:00:00 Completed [facility] Influenza Virus Vaccine Quad .5 mL IM 6+ MO 2019-06-20 00:00:00 Completed [facility] Influenza Virus Vaccine Quad ID 18-64 YRS 2016-09-16 00:00:00 Completed [facility] Influenza Virus Vaccine Quad ID 18-64 YRS 2016-09-16 00:00:00 Completed [facility] Vital Signs Vital Name Observation Time Observation Value Comments S ource Systolic blood pressure 2023-07-26 16:59:00 122 mm[Hg] [facility] Diastolic blood pressure 2023-07-26 16:59:00 77 mm[Hg] [facility] Heart rate 2023-07-26 16:59:00 66 /min [facility] Body temperature 2023-07-26 16:59:00 36.44 Tatianna [facility] Respiratory rate 2023-07-26 16:59:00 16 /min [facility] Body height 2023-07-26 16:59:00 170.2 cm [facility] Body weight 2023-07-26 16:59:00 113.853 kg [facility] BMI 2023-07-26 16:59:00 39.31 kg/m2 [facility] Oxygen saturation in Arterial blood by Pulse oximetry 2023-07-26 16:59:00 95 /min [facility] Systolic blood pressure 2019-06-20 13:54:00 102 mm[Hg] [facility] Diastolic blood pressure 2019-06-20 13:54:00 61 mm[Hg] [facility] Heart rate 2019-06-20 13:54:00 81 /min [facility] Body temperature 2019-06-20 13:54:00 36.5 Tatianna [facility] Respiratory rate 2019-06-20 13:54:00 18 /min [facility] Body height 2019-06-20 13:54:00 171.5 cm [facility] Body weight 2019-06-20 13:54:00 119.75 kg [facility] BMI 2019-06-20 13:54:00 40.74 kg/m2 [facility] Oxygen saturation in Arterial blood by Pulse oximetry 2019-06-20 13:54:00 98 /min [place] [facility] Procedures Procedure Date / Time Performed Performing Clinicia n Source POCT MOLECULAR FLU 2023-07-26 17:06:00 Unknown, Attend [facility] PATIENT FINANCIAL POLICY 2023-07-26 16:42:19 Doctor Unassigned, Hendrix [facility] FLU VACC ([id number]), 6+ MONTHS, IM, QUAD 2019-06-20 14:18:31 Timi Burton [facility] Encounters Start Date/Time End Date/Time Encounter Type Admission Type Attending Clinicians Care Facility Care Department Encounter ID Source 2022-01-07 11:58:10 Outpatient [facility] [id number] [facility] 2023-07-26 10:40:00 2023-07-26 11:00:00 Urgent Care Edna Romero Unknown, Attending [facility] [id number] [facility] 2023-07-26 10:40:00 2023-07-26 10:40:00 Outpatient R EDNA ROMERO [facility] [id number] [facility] 2023-07-26 00:00:00 2023-07-26 00:00:00 Orders Only Doctor Unassigned, Hendrix [facility] [id number] [facility] 2022-09-30 12:30:00 2022-09-30 12:30:00 Outpatient R ROMERO EDNA [facility] [id number] [facility] 2022-03-18 08:30:00 2022-03-18 08:30:[address] [facility] [id number] [facility] 2022-03-17 00:00:00 2022-03-17 00:00:00 Telephone [facility] [id number] [facility] 2020-12-03 08:10:00 2020-12-03 08:10:00 Outpatient GLADYS TINOCO [facility] [id number] [facility] 2020-11-05 10:30:00 2020-11-05 10:30:00 Outpatient R GLADYS MARSHALL [facility] [id number] [facility] 2020-11-04 14:55:00 2020-11-04 14:55:00 Outpatient GLADYS TINOCO [facility] [id number] [facility] 2019-06-20 08:40:00 2019-06-20 09:38:13 Outpatient R TIMI BURTON III [facility] [id number] [facility] 2019-06-20 08:40:00 2019-06-20 09:38:13 [facility] [id number] [facility] Results Test Description Test Time Test Comments Results Result Co mments Source [facility]
--- NOTE | 2025-04-21 10:00 | ER ---
Nurse's Notes [facility] Name: María Kramer Age: 49 yrs Sex: Male : 1975 Arrival Date: 04/21/2025 Time: 09:33 Bed IW3 Private MD: Diagnosis: Unspecified contact dermatitis, unspecified cause Presentation: 04/21 09:49 Chief complaint: Patient states: Rash to R side of neck started this morning. ll1 09:49 Coronavirus screen: Client denies travel out of the [place] in the last 14 days. At this ll1 time, the client does not indicate any symptoms associated with coronavirus-19. Ebola Screen: Patient denies travel to an Ebola-affected area in the 21 days before illness onset. Initial Sepsis Screen: Does the patient meet any 2 criteria? No. Patient's initial sepsis screen is negative. Does the patient have a suspected source of infection? No. Patient's initial sepsis screen is negative. Risk Assessment: Do you want to hurt yourself or someone else? Patient reports no desire to harm self or others. Onset of symptoms was April 21, 2025. 09:49 Method Of Arrival: Ambulatory ll1 09:49 Acuity: KAYLAH 4 ll1 10:18 Onset of symptoms was April 21, 2025. ll1 10:18 Onset of symptoms was April 21, 2025. ll1 Triage Assessment: 09:45 General: Appears in no apparent distress. Behavior is calm, cooperative, appropriate ll1 for age. Pain: Denies pain. Neuro: No deficits noted. Cardiovascular: No deficits noted. Respiratory: No deficits noted. Derm: Rash noted that is itchy, red, raised, Reports itchy rash to R side of neck. Historical: - Allergies: 09:43 No Known Allergies; ll1 - PMHx: 09:43 diabetes mellitus; Hypothyroidism; ll1 - PSHx: 10:18 None; ll1 - Immunization history:: Adult Immunizations up to date. - Infectious Disease History:: Denies. - Social history:: Smoking status: Patient reports the use of cigarette tobacco products, smokes one-half pack cigarettes per day. Screenin:08 [facility] ED Fall Risk Assessment (Adult) History of falling in the last 3 months, ll1 including since admission No falls in past 3 months (0 pts) Confusion or Disorientation No (0 pts) Intoxicated or Sedated No (0 pts) Impaired Gait No (0 pts) Mobility Assist Device Used No (0 pt) Altered Elimination No (0 pt) Score/Fall Risk Level 0 - 2 = Low Risk Maintained a safe environment, Hourly rounding (assess needs \T\ fall precautionary measures) done. Abuse screen: Denies threats or abuse. Nutritional screening: No deficits noted. Tuberculosis screening: No symptoms or risk factors identified. Assessment: 10:08 Reassessment: No changes from previously documented assessment. Patient and/or family ll1 updated on plan of care and expected duration. Pain level reassessed. Patient is alert, oriented x 3, equal unlabored respirations, skin warm/dry/pink. Vital Signs: 09:45 BP 131 / 77; Pulse 60; Resp 16; Temp 97.7; Pulse Ox 99% ; Weight 101.6 kg; Height 5 ft. ll1 7 in. ; Pain 0/10; 09:49 BP 131 / 77; Pulse 60; Resp 16; Temp 97.7; Pulse Ox 99% ; Weight 101.6 kg; Height 5 ft. ll1 7 in. ; Pain 0/10; 09:49 Body Mass Index 35.08 (101.60 kg, 170.18 cm) ll1 09:45 Pain Scale: Adult ll1 09:49 Pain Scale: Adult ll1 ED Course: 09:39 Patient arrived in ED. im 09:40 [facility]el[facility]-C [facility] 09:40 Chito Quintana MD is Attending Physician. dr5 09:43 Arm band placed on. ll1 09:43 Patient has correct armband on for positive identification. Bed in low position. ll1 Provided Education on: ER procedures and process. 10:08 No provider procedures requiring assistance completed. Patient did not have IV access ll1 during this emergency room visit. 10:15 Triage completed. ll1 Administered Medications: 10:00 Drug: Dexamethasone IM 10 mg IM once Route: IM; Site: right vastus lateralis; ll1 10:13 Follow up: Response: No adverse reaction ll1 Medication: 10:08 VIS not applicable for this client. ll1 Outcome: 09:59 Discharge ordered by . dr5 10:08 Patient left the ED. ll1 10:08 Discharged to home ambulatory, ll1 10:08 Condition: stable 10:08 Discharge instructions given to patient, Instructed on discharge instructions, follow up and referral plans. medication usage, Demonstrated understanding of instructions, follow-up care, medications, Prescriptions given X 2, Signatures: Aidee Padron RN RN ll1 Vicki White Dustin, MACHINE ASSISTANT-C MACHINE ASSISTANT-[id number]
--- NOTE | 2025-04-21 10:00 | EDPHYS ---
Physician Documentation [facility] Name: María Kramer Age: 49 yrs Sex: Male : 1975 Arrival Date: 04/21/2025 Time: 09:33 Bed IW3 Private MD: ED Physician Chito Quintana HPI: 04/21 10:27 This 49 yrs old Male presents to ER via Ambulatory with complaints of Rash. dr5 10:27 The patient's rash thought to be caused by Dermatitis. The rash is located on the right dr5 sternocleidomastoid and face. Onset: The symptoms/episode began/occurred 1 day(s) ago. Patient is a 49-year-old male with history of diabetes and hypothyroidism coming in with rash to right neck going for 2 days. Patient reports that his son also has the same rash. Patient reports they have been working on the yard. Patient describes the rash as itchy and has not taken medication prior to arrival.. Historical: - Allergies: 09:43 No Known Allergies; ll1 - PMHx: 09:43 diabetes mellitus; Hypothyroidism; ll1 - PSHx: 10:18 None; ll1 - Immunization history:: Adult Immunizations up to date. - Infectious Disease History:: Denies. - Social history:: Smoking status: Patient reports the use of cigarette tobacco products, smokes one-half pack cigarettes per day. ROS: 10:27 Constitutional: as per hpi dr5 Exam: 10:27 Constitutional: This is a well developed, well nourished patient who is awake, alert, dr5 and in no acute distress. Head/Face: Normocephalic, atraumatic. Eyes: Pupils equal round and reactive to light, extra-ocular motions intact. Lids and lashes normal. Conjunctiva and sclera are non-icteric and not injected. Cornea within normal limits. Periorbital areas with no swelling, redness, or edema. Neck: Trachea midline, no thyromegaly or masses palpated, and no cervical lymphadenopathy. Supple, full range of motion without nuchal rigidity, or vertebral point tenderness. No Meningismus. Chest/axilla: Normal chest wall appearance and motion. Nontender with no deformity. No lesions are appreciated. Cardiovascular: Regular rate and rhythm with a normal S1 and S2. Normal PMI, no JVD. No pulse deficits. Respiratory: Lungs have equal breath sounds bilaterally, clear to auscultation. No rales, rhonchi or wheezes noted. No increased work of breathing, no retractions or nasal flaring. Back: No spinal tenderness. No costovertebral tenderness. Full range of motion. MS/ Extremity: Pulses equal, no cyanosis. Neurovascular intact. Full, normal range of motion. Neuro: Awake and alert, GCS 15, oriented to person, place, time, and situation. Cranial nerves II-XII grossly intact. Motor strength 5/5 in all extremities. Sensory grossly intact. Cerebellar exam normal. Normal gait. 10:27 Skin: contact dermatitis, on the right sternocleidomastoid, Vital Signs: 09:45 BP 131 / 77; Pulse 60; Resp 16; Temp 97.7; Pulse Ox 99% ; Weight 101.6 kg; Height 5 ft. ll1 7 in. ; Pain 0/10; 09:49 BP 131 / 77; Pulse 60; Resp 16; Temp 97.7; Pulse Ox 99% ; Weight 101.6 kg; Height 5 ft. ll1 7 in. ; Pain 0/10; 09:49 Body Mass Index 35.08 (101.60 kg, 170.18 cm) ll1 09:45 Pain Scale: Adult ll1 09:49 Pain Scale: Adult ll1 MDM: 09:40 Medical Screening Exam initiated dr5 10:29 Differential diagnosis: impetigo, varicella, allergic reaction. Data reviewed: vital dr5 signs, nurses notes. Consideration of Admission/Observation Escalation of care including admission/observation considered. Escalation considered if patient had rash to eyes and/or ears.. I considered the following discharge prescriptions or medication management in the emergency department Medications were administered in the Emergency Department. See MAR. Historians other than the Patient: Parent: Son. Care significantly affected by the following Social Determinants of Health: Poor access to healthcare and/or lack of insurance, Poor access to transportation, Problems related to employment. Counseling: I had a detailed discussion with the patient and/or guardian regarding the historical points, exam findings, and any diagnostic results supporting the discharge/admit diagnosis, the presence of at least one elevated blood pressure reading (>120/80) during this emergency department visit, the need for outpatient follow up, for definitive care, a space engineer, a family practitioner, to return to the emergency department if symptoms worsen or persist or if there are any questions or concerns that arise at home. Medication response: Dexamethasone. Response to treatment: the patient's symptoms have mildly improved after treatment. Special discussion: I have referred the patient to see his PCP for further evaluation of high blood pressure. I discussed with the patient/guardian in detail that at this point there is no indication for admission to the hospital. It is understood, however, that if the symptoms persist or worsen the patient needs to return immediately for re-evaluation. Based on the history and exam findings, there is no indication for further emergent testing or inpatient evaluation. I discussed with the patient/guardian the need to see the space engineer for further evaluation of the symptoms. ED course: Will give the patient dexamethasone injection in the ER. Follow-up with steroid Dosepak as well as triamcinolone cream. Recommended Benadryl and/or Pepcid to help with itching. Recommended patient follow-up with primary care doctor and/or dermatology as needed. All questions answered. Strict ER precautions given. Administered Medications: 10:00 Drug: Dexamethasone IM 10 mg IM once Route: IM; Site: right vastus lateralis; ll1 10:13 Follow up: Response: No adverse reaction ll1 Disposition Summary: 04/21/25 09:59 Discharge Ordered Notes: Location: Home dr5 Condition: Stable dr5 Diagnosis - Unspecified contact dermatitis, unspecified cause dr5 Followup: dr5 - With: Emergency Department - When: As needed - Reason: Worsening of condition Followup: dr5 - With: Private Physician - When: 1 - 2 days - Reason: Recheck today's complaints, Continuance of care, Re-evaluation by your physician Discharge Instructions: - Discharge Summary Sheet dr5 - Contact Dermatitis dr5 Forms: - Work release form dr5 - Medication Reconciliation Form dr5 - Patient Portal Instructions dr5 - Leadership Thank You Letter dr5 Prescriptions: - Triamcinolone Acetonide 0.5 % Topical cream - apply 1 application TOPICAL route 2 times per day As needed; 1 application; dr5 Refills: 0, Product Selection Permitted - Medrol ([place]) 4 mg Oral Tablets, Dose Pack - take 1 tablet ORAL route as directed - follow package instructions; 1 packet; dr5 Refills: 0, Product Selection Permitted Signatures: Aidee Padron RN RN ll1 Joselito Singh, DEPUTY CLERK OF COURT-C DEPUTY CLERK OF COURT-Cdr5 Corrections: (The following items were deleted from the chart) 10: 10:27 Onset: The symptoms/episode began/occurred 2 day(s) ago, dr5 dr5
== END 2025-04-21 10:08 | disposition home or self-care (01) ==
LOC: ER 09:33
DX: L25.9 Unspecified contact dermatitis, unspecified cause (principal); F17.210 Nicotine dependence, cigarettes, uncomplicated
CPT/HCPCS: 96372; 99284; J1100